=== PATIENT | male | born 1970 | race Caucasian/White ===

== ENCOUNTER 2018-05-08 01:38 | Inpatient (IN) | payer OTHER ==
[~2018-05-08] VITALS: Ht 190.5 cm; Wt 138.0 kg
[~2018-05-08 01:38] MED LIST: AMOX500 PO; RXOXYACE PO
[2018-05-08 02:29] LABS: BASOPHILS ABSOLUTE AUTO 0.02 K/mm3 (0.00-0.23); BASOPHILS PERCENT AUTO 0 % (0-2); EOSINOPHILS ABSOLUTE AUTO 0.07 K/mm3 (0.00-0.68); EOSINOPHILS PERCENT AUTO 1 % (0-6); Hematocrit 46.9 % (37.0-53.0); Hemoglobin 15.3 g/dL (13.5-17.5); IMMATURE GRAN ABSOLUTE AUTO 0.03 K/mm3 (0.00-0.10); IMMATURE GRAN PERCENT AUTO 0 % (0-1); LYMPHOCYTES ABSOLUTE AUTO 1.01 K/mm3 (0.84-5.20); LYMPHOCYTES PERCENT AUTO 11 % (21-46); MONOCYTES ABSOLUTE AUTO 0.67 K/mm3 (0.16-1.47); MONOCYTES PERCENT AUTO 7 % (4-13); Mean Corpuscular HGB 29.7 pg (26.0-34.0); Mean Corpuscular HGB Conc 32.6 g/dL (31.5-36.5); Mean Corpuscular Volume 91 fL (80-100); Mean Platelet Volume 9.9 fL (9.1-12.4); NEUTROPHILS ABSOLUTE AUTO 7.85 K/mm3 (1.96-9.15); NEUTROPHILS PERCENT AUTO 81 % (41-73); Platelet Count 187 K/mm3 (150-400); RDW Coefficient Variation 13.2 % (11.7-14.2); RDW Standard Deviation 44.7 fL (35.1-46.3); Red Blood Cell Count 5.16 M/mm3 (4.30-5.90); White Blood Cell Count 9.65 K/mm3 (4.00-11.30)
[2018-05-08 02:48] LABS: Alanine Aminotransfer (ALT/SGP 30 U/L (12-78); Albumin, Blood 3.9 g/dL (3.4-5.0); Albumin/Globulin Ratio 1.2 (0.8-1.8); Alk Phos 33 U/L (50-136); Anion Gap 7 mmol/L (6-16); Aspartate Aminotrans (AST/SGOT 17 U/L (12-37); Bilirubin, Total 0.5 mg/dL (0.1-1.0); Blood Urea Nitrogen 20 mg/dL (8-24); Bun/Creatinine Ratio 21.7 (12.0-20.0); CO2, Blood 30 mmol/L (21-32); Calcium, Blood 8.3 mg/dL (8.5-10.1); Chloride, Blood 105 mmol/L (98-108); Creatinine, Blood 0.92 mg/dL (0.60-1.20); Globulin, Blood 3.3 g/dL (2.2-4.0); Glomerular Filtration Rate >60 (60-); Glucose, Blood 115 mg/dL (70-99); Potassium, Blood 3.6 mmol/L (3.5-5.5); Sodium, Blood 142 mmol/L (136-145); Total Protein, Blood 7.2 g/dL (6.4-8.2)
[2018-05-09 05:27] LABS: BASOPHILS ABSOLUTE AUTO 0.03 K/mm3 (0.00-0.23); BASOPHILS PERCENT AUTO 0 % (0-2); EOSINOPHILS ABSOLUTE AUTO 0.08 K/mm3 (0.00-0.68); EOSINOPHILS PERCENT AUTO 1 % (0-6); Hematocrit 39.1 % (37.0-53.0); Hemoglobin 12.5 g/dL (13.5-17.5); IMMATURE GRAN ABSOLUTE AUTO 0.04 K/mm3 (0.00-0.10); IMMATURE GRAN PERCENT AUTO 1 % (0-1); LYMPHOCYTES ABSOLUTE AUTO 0.82 K/mm3 (0.84-5.20); LYMPHOCYTES PERCENT AUTO 11 % (21-46); MONOCYTES ABSOLUTE AUTO 0.49 K/mm3 (0.16-1.47); MONOCYTES PERCENT AUTO 6 % (4-13); Mean Corpuscular HGB 29.7 pg (26.0-34.0); Mean Corpuscular Volume 93 fL (80-100); Mean Platelet Volume 10.3 fL (9.1-12.4); NEUTROPHILS ABSOLUTE AUTO 6.37 K/mm3 (1.96-9.15); NEUTROPHILS PERCENT AUTO 81 % (41-73); Platelet Count 143 K/mm3 (150-400); RDW Coefficient Variation 13.9 % (11.7-14.2); RDW Standard Deviation 47.3 fL (35.1-46.3); Red Blood Cell Count 4.21 M/mm3 (4.30-5.90); White Blood Cell Count 7.83 K/mm3 (4.00-11.30)
[2018-05-09 05:45] LABS: Alanine Aminotransfer (ALT/SGP 30 U/L (12-78); Alk Phos 30 U/L (50-136); Anion Gap 6 mmol/L (6-16); Aspartate Aminotrans (AST/SGOT 18 U/L (12-37); Bilirubin, Total 1.4 mg/dL (0.1-1.0); Blood Urea Nitrogen 13 mg/dL (8-24); Bun/Creatinine Ratio 15.1 (12.0-20.0); CO2, Blood 24 mmol/L (21-32); Calcium, Blood 7.7 mg/dL (8.5-10.1); Chloride, Blood 109 mmol/L (98-108); Creatinine, Blood 0.86 mg/dL (0.60-1.20); Globulin, Blood 2.9 g/dL (2.2-4.0); Glomerular Filtration Rate >60 (60-); Glucose, Blood 104 mg/dL (70-99); Potassium, Blood 3.5 mmol/L (3.5-5.5); Sodium, Blood 139 mmol/L (136-145); Total Protein, Blood 5.9 g/dL (6.4-8.2)
[2018-05-11] MEDS ORDERED: ACET325 PO (13:46)
[2018-05-11] MEDS ORDERED: AMOCLA500 PO (13:54)
== END 2018-05-11 14:16 | disposition home or self-care (01) | DRG 392 ==
LOC: ER 01:38 → MEDS 01:39 → ER 05:01 → MEDS 05:35
PROVIDERS: Emergency Medicine; Internal Medicine
DX: K57.20 Diverticulitis of large intestine with perforation and abscess without bleeding (principal); Z88.2 Allergy status to sulfonamides
CPT/HCPCS: 36415; 74177; 80053; 83690; 85025; 96365; 96375; 96376; 99285-25; G0378; J0295; J0744; J1650; J1885; J2405; J3010; J3480; J7030; J7050; Q9967

== ENCOUNTER 2020-07-27 03:02 | Inpatient (IN) | payer OTHER ==
[~2020-07-27] VITALS: Ht 190.5 cm; Wt 150.4 kg
[~2020-07-27 03:02] MED LIST changes: +ACET325 PO; +AMOCLA500 PO
[2020-07-27 03:54] LABS: BASOPHILS ABSOLUTE AUTO 0.06 K/mm3 (0.00-0.23); BASOPHILS PERCENT AUTO 1 % (0-2); EOSINOPHILS ABSOLUTE AUTO 0.19 K/mm3 (0.00-0.68); EOSINOPHILS PERCENT AUTO 2 % (0-6); Hematocrit 47.2 % (37.0-53.0); Hemoglobin 15.6 g/dL (13.5-17.5); IMMATURE GRAN ABSOLUTE AUTO 0.03 K/mm3 (0.00-0.10); IMMATURE GRAN PERCENT AUTO 0 % (0-1); LYMPHOCYTES ABSOLUTE AUTO 2.91 K/mm3 (0.84-5.20); LYMPHOCYTES PERCENT AUTO 32 % (21-46); MONOCYTES ABSOLUTE AUTO 0.77 K/mm3 (0.16-1.47); MONOCYTES PERCENT AUTO 9 % (4-13); Mean Corpuscular HGB 29.7 pg (26.0-34.0); Mean Corpuscular HGB Conc 33.1 g/dL (31.5-36.5); Mean Corpuscular Volume 90 fL (80-100); NEUTROPHILS ABSOLUTE AUTO 5.13 K/mm3 (1.96-9.15); NEUTROPHILS PERCENT AUTO 56 % (41-73); RDW Coefficient Variation 12.5 % (11.7-14.2); RDW Standard Deviation 41.4 fL (35.1-46.3); Red Blood Cell Count 5.26 M/mm3 (4.30-5.90); White Blood Cell Count 9.09 K/mm3 (4.00-11.30)
[2020-07-27 03:55] LABS: Troponin I <0.015 ng/mL (0.000-0.040)
[2020-07-27 03:56] LABS: Alanine Aminotransfer (ALT/SGP 41 U/L (12-78); Albumin, Blood 3.7 g/dL (3.4-5.0); Albumin/Globulin Ratio 1.2 (0.8-1.8); Alk Phos 33 U/L (50-136); Anion Gap 7 mmol/L (6-16); Aspartate Aminotrans (AST/SGOT 22 U/L (12-37); Bilirubin, Total 0.3 mg/dL (0.1-1.0); Blood Urea Nitrogen 18 mg/dL (8-24); Bun/Creatinine Ratio 20.2 (12.0-20.0); CO2, Blood 27 mmol/L (21-32); Calcium, Blood 8.4 mg/dL (8.5-10.1); Chloride, Blood 108 mmol/L (98-108); Creatinine, Blood 0.89 mg/dL (0.60-1.20); Globulin, Blood 3.2 g/dL (2.2-4.0); Glomerular Filtration Rate >60 (60-); Glucose, Blood 153 mg/dL (70-99); Potassium, Blood 3.2 mmol/L (3.5-5.5); Sodium, Blood 142 mmol/L (136-145); Total Protein, Blood 6.9 g/dL (6.4-8.2)
[2020-07-27 04:02] LABS: Mean Platelet Volume 10.2 fL (9.1-12.4); Platelet Count 173 K/mm3 (150-400)
[2020-07-27 06:17] LABS: Influenza A, PCR Negative (NEGATIVE); Influenza B, PCR Negative (NEGATIVE); Resp Syncytial Virus, PCR Negative (NEGATIVE); SARS-Cov-2 (COVID-19) PCR, MMC Negative (NEGATIVE)
[2020-07-27] MEDS ORDERED: ACET325 PO (07:27)
[2020-07-27] MEDS ORDERED: DIPH25 PO (07:28)
[2020-07-27 10:58] LABS: Source, Urine Clean Catch
[2020-07-27 11:02] LABS: Bilirubin, Urine Neg (Neg); Blood, Urine Neg (Neg); Glucose Qualitative, Urine 1+ (Neg); Ketones, Urine 1+ (Neg); Leukocyte Esterase, Urine Neg (Neg); Nitrite, Urine Neg (Neg); Protein, Urine Neg (Neg); Specific Gravity, Urine 1.015 (1.003-1.022); Urobilinogen, Urine NORM (Normal)
[2020-07-27 11:12] LABS: Appearance, Urine Clear (Clear); Color, Urine Pale Yellow (P-Yellow)
--- NOTE | 2020-07-27 17:15 | NUR ---
SHIFT SUMMARY PATIENT TO THE FLOOR EARLY THIS MORNING. PATIENT ALERT AND ORIENTED UPON ARRIVAL. PATIENT TRANSFERED FROM [facility] TO THE BED INDEPENDENTLY. PATIENT MADE COMFORTABLE AND ORIENTED TO THE ROOM. PATIENT SLEPT MUCH OF THE MORNING. PATIENT UP INDEPENDENTLY TO THE BATHROOM. PATIENT DENIES PAIN OR DISCOMFORT THROUGHOUT THIS SHIFT. PATIENT REPORTS DIFFICULTY HEARING IN THE LEFT EAR, DR NOTIFIED. PATIENT'S SPOUSE IN THE ROOM THIS AFTERNOON. PATIENT NAPPED OFF AND ON THROUGHOUT THE AFTERNOON. PATIENT CURRENTLY LAYING IN BED SLEEPING.
[2020-07-28 04:27] LABS: BASOPHILS ABSOLUTE AUTO 0.02 K/mm3 (0.00-0.23); BASOPHILS PERCENT AUTO 0 % (0-2); EOSINOPHILS ABSOLUTE AUTO 0.02 K/mm3 (0.00-0.68); EOSINOPHILS PERCENT AUTO 0 % (0-6); Hematocrit 43.1 % (37.0-53.0); Hemoglobin 14.4 g/dL (13.5-17.5); IMMATURE GRAN ABSOLUTE AUTO 0.03 K/mm3 (0.00-0.10); IMMATURE GRAN PERCENT AUTO 0 % (0-1); LYMPHOCYTES ABSOLUTE AUTO 1.62 K/mm3 (0.84-5.20); LYMPHOCYTES PERCENT AUTO 14 % (21-46); MONOCYTES ABSOLUTE AUTO 0.96 K/mm3 (0.16-1.47); MONOCYTES PERCENT AUTO 8 % (4-13); Mean Corpuscular HGB 30.7 pg (26.0-34.0); Mean Corpuscular HGB Conc 33.4 g/dL (31.5-36.5); Mean Corpuscular Volume 92 fL (80-100); Mean Platelet Volume 9.8 fL (9.1-12.4); NEUTROPHILS ABSOLUTE AUTO 9.08 K/mm3 (1.96-9.15); NEUTROPHILS PERCENT AUTO 77 % (41-73); Platelet Count 174 K/mm3 (150-400); RDW Coefficient Variation 12.9 % (11.7-14.2); RDW Standard Deviation 42.9 fL (35.1-46.3); Red Blood Cell Count 4.69 M/mm3 (4.30-5.90); White Blood Cell Count 11.73 K/mm3 (4.00-11.30)
[2020-07-28 04:48] LABS: Anion Gap 4 mmol/L (6-16); Blood Urea Nitrogen 9 mg/dL (8-24); Bun/Creatinine Ratio 12.3 (12.0-20.0); CO2, Blood 28 mmol/L (21-32); Calcium, Blood 8.6 mg/dL (8.5-10.1); Chloride, Blood 110 mmol/L (98-108); Creatinine, Blood 0.73 mg/dL (0.60-1.20); Glomerular Filtration Rate >60 (60-); Glucose, Blood 110 mg/dL (70-99); Potassium, Blood 3.5 mmol/L (3.5-5.5); Sodium, Blood 142 mmol/L (136-145)
--- NOTE | 2020-07-28 07:42 | NUR ---
SHIFT SUMMARY PATIENT ALERT AND ORIENTED. HAD NO COMPLAINTS OF PAIN OR SHORTNESS OF BREATH OVERNIGHT. WAS ABLE TO SLEEP WELL. IV PATENT AND INFUSING. BED IN LOWEST POSITION WITH WHEELS LOCKED AND ALARM ON. CALL LIGHT WITHIN REACH. REPORT GIVEN TO ONCOMING RN.
[2020-07-28] MEDS ORDERED: CLON.5 PO (10:10)
[2020-07-28] MEDS ORDERED: PRED20 PO (10:11)
--- NOTE | 2020-07-28 12:15 | NUR ---
PT DISCHARGED AT APPROX 1210 VIA WHEELCHAIR BY TRAFFIC CONTROLLER CABLE. PT TAKEN TO EMERGENCY EXIT WHERE FAMILY IS WAITING FOR PT. IV WAS REMOVED AND SITE LOOKED WNL. DISCHARGE INSTRUCTIONS, FOLLOW UP APPOINTMENT, AND MEDICATIONS REVIEWED WITH PT. HARD SCRIPT PROVIDED TO PT. ROOM CHECKED FOR ANY BELONGINGS BEFORE DISCHARGING PT. PT STATED HE HAD EVERYTHING.
== END 2020-07-28 12:12 | disposition home or self-care (01) | DRG 149 ==
LOC: ER 03:02 → MEDS 05:36 → ENPENDDIS 07-28 09:47 → MEDS 07-28 12:12
PROVIDERS: Emergency Medicine; ADMIT Internal Medicine
DX: H81.02 Meniere's disease, left ear (principal); E87.2 Acidosis; E87.6 Hypokalemia; Z20.828 Contact with and (suspected) exposure to other viral communicable diseases
CPT/HCPCS: 0241U; 36415; 74176; 80048; 80053; 81003; 83605; 83690; 84484; 85025; 93005; 93010; 96361; 96365; 96375; 99285-25; A9270; J0744; J1650; J2405; J2543; J2550; J7030; J7120; J7512

== ENCOUNTER 2020-08-04 00:32 | Day surgery (SDC) | payer OTHER ==
[~2020-08-04 00:32] MED LIST changes: +CLON.5 PO; +DIPH25 PO; +PRED20 PO
== END 2020-08-04 23:42 | disposition home or self-care (01) ==
LOC: WOUND 00:32
DX: H90.42 Sensorineural hearing loss, unilateral, left ear, with unrestricted hearing on the contralateral side (principal); Z88.2 Allergy status to sulfonamides
CPT/HCPCS: G0463

== ENCOUNTER 2020-08-11 00:24 | Day surgery (SDC) | payer OTHER | END 2020-08-11 22:58 | disposition home or self-care (01) | LOC: HBO 00:24 | DX: H90.42 Sensorineural hearing loss, unilateral, left ear, with unrestricted hearing on the contralateral side (principal); Z79.52 Long term (current) use of systemic steroids; Z79.899 Other long term (current) drug therapy; Z20.828 Contact with and (suspected) exposure to other viral communicable diseases; Z88.2 Allergy status to sulfonamides | CPT/HCPCS: G0277 ==

== ENCOUNTER 2020-08-12 00:24 | Day surgery (SDC) | payer OTHER | END 2020-08-12 22:55 | disposition home or self-care (01) | LOC: HBO 00:24 | DX: H90.42 Sensorineural hearing loss, unilateral, left ear, with unrestricted hearing on the contralateral side (principal); Z79.52 Long term (current) use of systemic steroids; Z79.899 Other long term (current) drug therapy; Z20.828 Contact with and (suspected) exposure to other viral communicable diseases; Z88.2 Allergy status to sulfonamides | CPT/HCPCS: G0277 ==

== ENCOUNTER 2020-08-13 01:14 | Day surgery (SDC) | payer OTHER | END 2020-08-13 23:01 | disposition home or self-care (01) | LOC: HBO 01:14 | DX: H90.42 Sensorineural hearing loss, unilateral, left ear, with unrestricted hearing on the contralateral side (principal); Z79.52 Long term (current) use of systemic steroids; Z79.899 Other long term (current) drug therapy; Z20.828 Contact with and (suspected) exposure to other viral communicable diseases; Z88.2 Allergy status to sulfonamides | CPT/HCPCS: G0277 ==

== ENCOUNTER 2020-08-14 00:46 | Day surgery (SDC) | payer OTHER | END 2020-08-14 23:20 | disposition home or self-care (01) | LOC: HBO 00:46 | DX: H90.42 Sensorineural hearing loss, unilateral, left ear, with unrestricted hearing on the contralateral side (principal); Z79.52 Long term (current) use of systemic steroids; Z79.899 Other long term (current) drug therapy; Z20.828 Contact with and (suspected) exposure to other viral communicable diseases; Z88.2 Allergy status to sulfonamides | CPT/HCPCS: G0277 ==

== ENCOUNTER 2020-08-19 00:28 | Day surgery (SDC) | payer OTHER | END 2020-08-19 22:47 | disposition home or self-care (01) | LOC: HBO 00:28 | DX: H91.22 Sudden idiopathic hearing loss, left ear (principal); H91.90 Unspecified hearing loss, unspecified ear | CPT/HCPCS: G0277 ==

== ENCOUNTER 2020-08-20 08:00 | Day surgery (SDC) | payer OTHER | END 2020-08-25 23:10 | disposition home or self-care (01) | LOC: HBO 08:00 | DX: H90.42 Sensorineural hearing loss, unilateral, left ear, with unrestricted hearing on the contralateral side (principal); Z79.899 Other long term (current) drug therapy; Z20.822 Contact with and (suspected) exposure to COVID-19; Z88.2 Allergy status to sulfonamides | CPT/HCPCS: G0277 ==

== ENCOUNTER 2020-08-21 00:11 | Day surgery (SDC) | payer OTHER | END 2020-08-21 23:33 | disposition home or self-care (01) | LOC: HBO 00:11 | DX: H91.22 Sudden idiopathic hearing loss, left ear (principal) | CPT/HCPCS: G0277 ==

== ENCOUNTER 2020-08-22 01:13 | Day surgery (SDC) | payer OTHER | END 2020-08-22 23:22 | disposition home or self-care (01) | LOC: HBO 01:13 | DX: H90.42 Sensorineural hearing loss, unilateral, left ear, with unrestricted hearing on the contralateral side (principal) | CPT/HCPCS: G0277 ==

== ENCOUNTER 2020-08-25 00:36 | Day surgery (SDC) | payer OTHER | END 2020-08-25 23:10 | disposition home or self-care (01) | LOC: WOUND 00:36 | DX: H90.42 Sensorineural hearing loss, unilateral, left ear, with unrestricted hearing on the contralateral side (principal); Z79.899 Other long term (current) drug therapy; Z20.822 Contact with and (suspected) exposure to COVID-19; Z88.2 Allergy status to sulfonamides | CPT/HCPCS: G0463 ==

== ENCOUNTER 2020-08-25 00:37 | Day surgery (SDC) | payer OTHER | END 2020-08-25 23:10 | disposition home or self-care (01) | LOC: HBO 00:37 | DX: H90.42 Sensorineural hearing loss, unilateral, left ear, with unrestricted hearing on the contralateral side (principal); Z79.899 Other long term (current) drug therapy; Z20.822 Contact with and (suspected) exposure to COVID-19; Z82.2 Family history of deafness and hearing loss | CPT/HCPCS: G0277 ==

== ENCOUNTER 2020-08-26 00:39 | Day surgery (SDC) | payer OTHER | END 2020-08-26 22:47 | LOC: HBO 00:39 | DX: H90.42 Sensorineural hearing loss, unilateral, left ear, with unrestricted hearing on the contralateral side (principal); Z79.899 Other long term (current) drug therapy; Z20.822 Contact with and (suspected) exposure to COVID-19; Z88.2 Allergy status to sulfonamides; Z79.1 Long term (current) use of non-steroidal anti-inflammatories (NSAID) | CPT/HCPCS: G0277 ==

== ENCOUNTER 2020-08-27 00:24 | Day surgery (SDC) | payer OTHER | END 2020-08-27 22:46 | disposition home or self-care (01) | LOC: HBO 00:24 | DX: H90.42 Sensorineural hearing loss, unilateral, left ear, with unrestricted hearing on the contralateral side (principal) | CPT/HCPCS: G0277 ==

== ENCOUNTER 2020-08-28 00:16 | Day surgery (SDC) | payer OTHER | END 2020-08-28 23:53 | disposition home or self-care (01) | LOC: HBO 00:16 | DX: H90.42 Sensorineural hearing loss, unilateral, left ear, with unrestricted hearing on the contralateral side (principal); Z79.899 Other long term (current) drug therapy; Z20.822 Contact with and (suspected) exposure to COVID-19; Z88.2 Allergy status to sulfonamides | CPT/HCPCS: G0277 ==

== ENCOUNTER 2020-08-29 02:05 | Day surgery (SDC) | payer OTHER | END 2020-08-29 23:48 | disposition home or self-care (01) | LOC: HBO 02:05 | DX: H90.42 Sensorineural hearing loss, unilateral, left ear, with unrestricted hearing on the contralateral side (principal); Z79.899 Other long term (current) drug therapy; Z20.822 Contact with and (suspected) exposure to COVID-19; Z88.2 Allergy status to sulfonamides | CPT/HCPCS: G0277 ==

== ENCOUNTER 2020-09-01 00:27 | Day surgery (SDC) | payer OTHER | END 2020-09-01 22:39 | LOC: HBO 00:27 | DX: H90.42 Sensorineural hearing loss, unilateral, left ear, with unrestricted hearing on the contralateral side (principal); Z79.899 Other long term (current) drug therapy; Z88.2 Allergy status to sulfonamides | CPT/HCPCS: G0277 ==

== ENCOUNTER 2020-09-02 00:23 | Day surgery (SDC) | payer OTHER | END 2020-09-02 23:14 | disposition home or self-care (01) | LOC: HBO 00:23 | DX: H91.22 Sudden idiopathic hearing loss, left ear (principal); Z79.899 Other long term (current) drug therapy; Z20.822 Contact with and (suspected) exposure to COVID-19; Z88.2 Allergy status to sulfonamides | CPT/HCPCS: G0277 ==

== ENCOUNTER 2020-09-03 00:42 | Day surgery (SDC) | payer OTHER | END 2020-09-03 23:08 | disposition home or self-care (01) | LOC: HBO 00:42 | DX: H90.42 Sensorineural hearing loss, unilateral, left ear, with unrestricted hearing on the contralateral side (principal); Z79.899 Other long term (current) drug therapy; Z20.822 Contact with and (suspected) exposure to COVID-19; Z88.2 Allergy status to sulfonamides | CPT/HCPCS: G0277 ==

== ENCOUNTER 2020-09-04 01:32 | Day surgery (SDC) | payer OTHER | END 2020-09-04 22:37 | disposition home or self-care (01) | LOC: HBO 01:32 | DX: H90.42 Sensorineural hearing loss, unilateral, left ear, with unrestricted hearing on the contralateral side (principal); Z79.899 Other long term (current) drug therapy; Z88.2 Allergy status to sulfonamides; Z20.822 Contact with and (suspected) exposure to COVID-19 | CPT/HCPCS: G0277 ==

== ENCOUNTER 2020-09-05 00:30 | Day surgery (SDC) | payer OTHER | END 2020-09-05 22:44 | disposition home or self-care (01) | LOC: HBO 00:30 | DX: H90.42 Sensorineural hearing loss, unilateral, left ear, with unrestricted hearing on the contralateral side (principal) | CPT/HCPCS: G0277 ==

== ENCOUNTER 2020-09-08 00:30 | Day surgery (SDC) | payer OTHER | END 2020-09-08 22:37 | disposition home or self-care (01) | LOC: HBO 00:30 | DX: H90.42 Sensorineural hearing loss, unilateral, left ear, with unrestricted hearing on the contralateral side (principal); Z79.899 Other long term (current) drug therapy; Z88.2 Allergy status to sulfonamides | CPT/HCPCS: G0277 ==

== ENCOUNTER 2020-09-09 00:19 | Day surgery (SDC) | payer OTHER | END 2020-09-09 22:50 | disposition home or self-care (01) | LOC: HBO 00:19 | DX: H91.22 Sudden idiopathic hearing loss, left ear (principal) | CPT/HCPCS: G0277 ==

== ENCOUNTER 2020-09-09 00:22 | Day surgery (SDC) | payer OTHER | END 2020-09-09 22:50 | disposition home or self-care (01) | LOC: WOUND 00:22 | DX: H91.22 Sudden idiopathic hearing loss, left ear (principal) | CPT/HCPCS: G0463 ==

== ENCOUNTER 2021-03-31 13:21 | Inpatient (IN) | payer OTHER ==
[~2021-03-31] VITALS: Ht 190.5 cm; Wt 150.4 kg
[2021-03-31 15:20] LABS: BASOPHILS ABSOLUTE AUTO 0.01 K/mm3 (0.00-0.23); BASOPHILS PERCENT AUTO 0 % (0-2); EOSINOPHILS PERCENT AUTO 0 % (0-6); Hematocrit 49.3 % (37.0-53.0); IMMATURE GRAN ABSOLUTE AUTO 0.03 K/mm3 (0.00-0.10); IMMATURE GRAN PERCENT AUTO 0 % (0-1); LYMPHOCYTES ABSOLUTE AUTO 0.39 K/mm3 (0.84-5.20); LYMPHOCYTES PERCENT AUTO 5 % (21-46); MONOCYTES ABSOLUTE AUTO 0.23 K/mm3 (0.16-1.47); MONOCYTES PERCENT AUTO 3 % (4-13); Mean Corpuscular HGB 30.1 pg (26.0-34.0); Mean Corpuscular HGB Conc 34.5 g/dL (31.5-36.5); Mean Corpuscular Volume 87 fL (80-100); Mean Platelet Volume 10.1 fL (9.1-12.4); NEUTROPHILS ABSOLUTE AUTO 7.21 K/mm3 (1.96-9.15); NEUTROPHILS PERCENT AUTO 92 % (41-73); Platelet Count 150 K/mm3 (150-400); RDW Coefficient Variation 13.6 % (11.7-14.2); RDW Standard Deviation 43.8 fL (35.1-46.3); Red Blood Cell Count 5.65 M/mm3 (4.30-5.90); White Blood Cell Count 7.87 K/mm3 (4.00-11.30)
[2021-03-31 15:45] LABS: Troponin I 0.054 ng/mL (0.000-0.040)
[2021-03-31 15:49] LABS: Alanine Aminotransfer (ALT/SGP 128 U/L (12-78); Albumin, Blood 3.5 g/dL (3.4-5.0); Albumin/Globulin Ratio 0.9 (0.8-1.8); Alk Phos 41 U/L (50-136); Anion Gap 5 mmol/L (6-16); Aspartate Aminotrans (AST/SGOT 114 U/L (12-37); Bilirubin, Total 0.4 mg/dL (0.1-1.0); Blood Urea Nitrogen 13 mg/dL (8-24); Bun/Creatinine Ratio 14.3 (12.0-20.0); CO2, Blood 27 mmol/L (21-32); Chloride, Blood 100 mmol/L (98-108); Creatinine, Blood 0.91 mg/dL (0.60-1.20); Glomerular Filtration Rate >60 (60-); Glucose, Blood 142 mg/dL (70-99); Potassium, Blood 4.1 mmol/L (3.5-5.5); Sodium, Blood 132 mmol/L (136-145); Total Protein, Blood 7.5 g/dL (6.4-8.2)
[2021-03-31] MEDS ORDERED: CEFDINIR300 M4 PO (16:41)
[2021-03-31] MEDS ORDERED: Zithromax Tri-500 MG PO ×2 (16:42→21:18)
[2021-03-31] MEDS ORDERED: Prednisone10 MG PO (21:16)
[2021-03-31] MEDS ORDERED: CEFD300 PO (21:17)
--- NOTE | 2021-03-31 22:40 | NUR ---
IV R AC 20 SL WNL, PATENT
--- NOTE | 2021-03-31 22:53 | NUR ---
2231 PT ARRIVED TO ROOM FROM ER IN STABLE CONDITION. REPORTS SOB THAT INCREASES WITH EXERTION, ON 4L O2 NC AT 96%. WILL GET TELE RYTHYM AFTER IT IS PLACED ON. NO OTHER APPARENT SIGNS OF DISTRESS. CALL LIGHT IS IN REACH.
--- NOTE | 2021-03-31 23:31 | NUR ---
TELE NSR AT 78 PER SUPERVISOR IRRIGATION
--- NOTE | 2021-04-01 03:36 | NUR ---
0000 PT LYING IN BED, EYES CLOSED, APPEARS TO BE RESTING. BREATHING IS EVEN, UNLABORED. NO APPARENT SIGNS OF DISTRESS. CALL LIGHT IS IN REACH.
--- NOTE | 2021-04-01 03:37 | NUR ---
0135 PT LYING IN BED, REQUESTED AND RECIEVED TYLENOL. WILL EVAL FOR EFFECT. NO OTHER APPARENT SIGNS OF DISTRESS. CALL LIGHT IS IN REACH.
--- NOTE | 2021-04-01 03:37 | NUR ---
PT LYING IN BED, EYES CLOSED, APPEARS TO BE RESTING. BREATHING IS EVEN, UNLABORED. NO APPARENT SIGNS OF DISTRESS. CALL LIGHT IS IN REACH.
--- NOTE | 2021-04-01 03:38 | NUR ---
PT IS AAO X 4, ON 5L O2 NC AT 94%. REPORTS SOB THAT INCREASES WITH EXERTION. GOT TYLENOL AND TORADOL IN ER FOR TEMP 99.8/100.2 AND ABD PAIN. GOT TYLENOL ABOUT 0135 FOR ABD PAIN AND PT STATED HE FELT WARM. TELE NSR.
--- NOTE | 2021-04-01 07:25 | NUR ---
PT LYING IN BED, EYES CLOSED, APPEARS TO BE RESTING. BREATHING IS EVEN, UNLABORED. NO APPARENT SIGNS OF DISTRESS. CALL LIGHT IS IN REACH. NO OTHER CHANGES THIS SHIFT.
--- NOTE | 2021-04-01 11:03 | NUR ---
Spiritual Care visit provided. The pt was unsure of how he was doing relative to other covid pts. I reassured him and provided encouragement that he was in the right place to get the care he needed. He is anxious about getting back to work as this is an extremely busy and important time of the year for him. Pt engaged well and verbalized appreciation.
--- NOTE | 2021-04-01 17:23 | NUR ---
PT HAS BEEN MAINTAINING LEVELS >90 BETWEEN 5-7L. PT IS ALERT AND ORIENTED AND ABLE TO EXPRESS ANY NEEDS. PT HAS BEEN PRONING OR UP RIGHT IN CHAIR NEEDED. HE IS FRIENDLY AND COOPERATIVE WITH STAFF. FIRST DOSE OF REMDEZ GIVEN. CALL LIGHT WITHIN REACH. WCTM
--- NOTE | 2021-04-02 00:20 | NUR ---
iv present rt fa not documented. Site clean dry intact flushed with ease
--- NOTE | 2021-04-02 05:14 | NUR ---
50 year old Male with covid 19 pneumonia required tiration of oxygen to max on nonrebreather this AM, had needed to change from high flow to oximizer last PM & was 7 l oximizer through [facility] with bioxx. Proned most of night & this AM had hacking cough sats 84 gave cough med & increased oxygen to 15 l nonrebreather & changed fonger probe for bioxx. desated to 71 despite max oxygen . RT notified & PT started on airvo heated high flow oxygen to keep sats greater than 90%. ORder obtained for DR Celso Juarez for heated high flow oxygen & sats now above 90% currently 92% on 50 l 90% per RT report.
--- NOTE | 2021-04-02 06:25 | NUR ---
PT sat 92% on airvo alert asking for a fan.
--- NOTE | 2021-04-02 09:45 | NUR ---
PT WILL BE TRANSFER TO ICU; MAX ON BIPAP SATS 90% AT REST. DESATS ON EXERTION
--- NOTE | 2021-04-02 10:25 | NUR ---
UPDATE ON PT'S TRANSFER TO ICU CALLED TO , [facility].
[2021-04-02 11:29] LABS: BASOPHILS ABSOLUTE AUTO 0.01 K/mm3 (0.00-0.23); BASOPHILS PERCENT AUTO 0 % (0-2); EOSINOPHILS PERCENT AUTO 0 % (0-6); Hematocrit 46.4 % (37.0-53.0); Hemoglobin 15.9 g/dL (13.5-17.5); IMMATURE GRAN ABSOLUTE AUTO 0.03 K/mm3 (0.00-0.10); IMMATURE GRAN PERCENT AUTO 0 % (0-1); LYMPHOCYTES ABSOLUTE AUTO 0.46 K/mm3 (0.84-5.20); LYMPHOCYTES PERCENT AUTO 5 % (21-46); MONOCYTES ABSOLUTE AUTO 0.36 K/mm3 (0.16-1.47); MONOCYTES PERCENT AUTO 4 % (4-13); Mean Corpuscular HGB 30.1 pg (26.0-34.0); Mean Corpuscular HGB Conc 34.3 g/dL (31.5-36.5); Mean Corpuscular Volume 88 fL (80-100); Mean Platelet Volume 10.2 fL (9.1-12.4); NEUTROPHILS ABSOLUTE AUTO 8.14 K/mm3 (1.96-9.15); NEUTROPHILS PERCENT AUTO 91 % (41-73); Platelet Count 172 K/mm3 (150-400); RDW Coefficient Variation 13.7 % (11.7-14.2); RDW Standard Deviation 44.6 fL (35.1-46.3); Red Blood Cell Count 5.28 M/mm3 (4.30-5.90)
[2021-04-02 11:49] LABS: Anion Gap 5 mmol/L (6-16); Blood Urea Nitrogen 13 mg/dL (8-24); Bun/Creatinine Ratio 20.2 (12.0-20.0); CO2, Blood 29 mmol/L (21-32); Calcium, Blood 8.7 mg/dL (8.5-10.1); Chloride, Blood 103 mmol/L (98-108); Creatinine, Blood 0.64 mg/dL (0.60-1.20); Glomerular Filtration Rate >60 (60-); Glucose, Blood 109 mg/dL (70-99); Potassium, Blood 4.2 mmol/L (3.5-5.5); Sodium, Blood 137 mmol/L (136-145)
--- NOTE | 2021-04-02 12:00 | NUR ---
Assumed care of pt upon arrival to ICU 12 from medical floor at 1005. Pt transferred to ICU because he was on maximum settings with V60 BiPAP. Slid from med bed to ICU bed using slider sheet and 5 staff. Pt arrived to unit wearing V60 BiPAP /6 and 100% FiO2. SpO2 97% and RR 16-20. Lungs coarse t/o, diminished in bases. Dry, nonproductive cough noted. SR per monitor. BP stable. Pt is A&O x 4. Answers questions. Follows commands. Verbalizes needs. Pleasant and cooperative with care. Bed in lowest position. Call light in reach. Pt denies need at this time.
[2021-04-02 14:22] LABS: PCO2 Arterial 41.6 mmHg (35-45); PO2 Arterial 84.5 mmHg (80-100); pH Blood Arterial 7.46 (7.35-7.45)
[2021-04-02 14:57] LABS: Source, Urine Catheter
--- NOTE | 2021-04-02 15:00 | NUR ---
Pt attempted to void into urinal and was unsuccessful. Stated "I may need a catheter". Conte catheter inserted, pt tolerated well. Pt to CT for PE study. This RN gave an update. Pt took break from BiPAP for V60 HFT. Tolerated for about 10 minutes before he desaturated into 80s. This RN had also call spouse so the two of them could talk since he was on a break from the mask. Pt talked with and then was put back onto BiPAP.
[2021-04-02 15:04] LABS: Appearance, Urine Clear (Clear); Bilirubin, Urine Neg (Neg); Blood, Urine 1+ (Neg); Color, Urine Yellow (P-Yellow); Glucose Qualitative, Urine Neg (Neg); Ketones, Urine Neg (Neg); Leukocyte Esterase, Urine Neg (Neg); Nitrite, Urine Neg (Neg); Protein, Urine 2+ (Neg); Urobilinogen, Urine NORM (Normal)
[2021-04-02 15:19] LABS: Bacteria Mod /hpf; Red Blood Cells, Urine 0-2 /hpf (0-2); Squamous Epithelial Cells Rare /hpf (Few); White Blood Cells, Urine 0-2 /hpf (0-5)
--- NOTE | 2021-04-02 19:28 | NUR ---
SUMMARY At this time, V60 BiPAP settings /6 and 75% FiO2. SpO2 90% or greater. SR per monitor. Pt did not get out of bed this shift due to high oxygen requirement, but did stay mobile in bed, repositioning with only verbal cues from staff. Conte catheter placed because pt was unable to void. SR per monitor. BP stable. Pt briefly visited with his son, Sigifredo, this evening.
[2021-04-03 03:21] LABS: BASOPHILS ABSOLUTE AUTO 0.01 K/mm3 (0.00-0.23); BASOPHILS PERCENT AUTO 0 % (0-2); EOSINOPHILS PERCENT AUTO 0 % (0-6); Hematocrit 47.4 % (37.0-53.0); Mean Corpuscular HGB 29.8 pg (26.0-34.0); Mean Corpuscular HGB Conc 33.8 g/dL (31.5-36.5); Mean Corpuscular Volume 88 fL (80-100); Platelet Count 190 K/mm3 (150-400); RDW Coefficient Variation 13.4 % (11.7-14.2); RDW Standard Deviation 43.7 fL (35.1-46.3); Red Blood Cell Count 5.37 M/mm3 (4.30-5.90); White Blood Cell Count 6.99 K/mm3 (4.00-11.30)
[2021-04-03 03:22] LABS: IMMATURE GRAN ABSOLUTE AUTO 0.03 K/mm3 (0.00-0.10); IMMATURE GRAN PERCENT AUTO 0 % (0-1); LYMPHOCYTES ABSOLUTE AUTO 0.73 K/mm3 (0.84-5.20); LYMPHOCYTES PERCENT AUTO 10 % (21-46); MONOCYTES ABSOLUTE AUTO 0.49 K/mm3 (0.16-1.47); MONOCYTES PERCENT AUTO 7 % (4-13); NEUTROPHILS ABSOLUTE AUTO 5.73 K/mm3 (1.96-9.15); NEUTROPHILS PERCENT AUTO 82 % (41-73)
[2021-04-03 03:40] LABS: Anion Gap 4 mmol/L (6-16); Blood Urea Nitrogen 14 mg/dL (8-24); Bun/Creatinine Ratio 19.4 (12.0-20.0); CO2, Blood 30 mmol/L (21-32); Calcium, Blood 8.4 mg/dL (8.5-10.1); Chloride, Blood 105 mmol/L (98-108); Creatinine, Blood 0.72 mg/dL (0.60-1.20); Glomerular Filtration Rate >60 (60-); Glucose, Blood 117 mg/dL (70-99); Potassium, Blood 4.4 mmol/L (3.5-5.5); Sodium, Blood 139 mmol/L (136-145)
[2021-04-03 05:22] LABS: PCO2 Arterial 40.9 mmHg (35-45); PO2 Arterial 62.4 mmHg (80-100); pH Blood Arterial 7.48 (7.35-7.45)
--- NOTE | 2021-04-03 06:20 | NUR ---
END OF SHIFT SUMMARY: PATIENT HAS REMAINED A/O X4 AND HAS TOLERATED BIPAP OVERNIGHT / ON 75%. PATIENT REPORTS LITTLE TO NO APPETITE INITIALLY BUT ATE ENSURE X2 AND PUDDING X2. HE WAS PLACED ON AIRVO AT 100% WHILE EATING BUT DESATED INTO LOW 80S AND THEN TO MID 70S. HE HAS REMAINED ON BIPAP THE REST OF THE EVENING AND HAS DONE WELL PRONING AND TURNING ON OWN WITH A LITTLE ENCOURANGEMENT & GUIDANCE. PATIENT CALLED THAT HE WAS UNCOMFORTABLE AND GETTING MORE AND MORE ANXIOUS. EXPLAINED TO HIM WHAT PRECEDEX WAS AND THAT I COULD START IF NEEDED. HE AGREED AND IT WAS STARTED AT 0030.
--- NOTE | 2021-04-03 07:30 | NUR ---
UPON THE CHANGE OF SHIFT PT NOTED TO BE PALE, COOL, AND DIAPHORETIC, RR 47, SPO2 79%. BIPAP SETTINGS WERE CHANGED TO 20/10 WITH 100% O2, PT'S SPO2 SLOWLY TRENDS UP WITH SETTINGS CHANGE. HR 46 PRECIDEX DRIP WAS STOPPED, PT STS THAT PRECIDEX WAS NOT IMPROVING HIS COMFORT OR ANXIETY. PT WAS POSITIONED TO LT SIDE SPO2 CONTINUES TO IMPROVE. RT IS AT THE BEDSIDE DR SCHWAB IS MADE AWARE. WILL CONTINUE TO MONITOR
--- NOTE | 2021-04-03 09:24 | NUR ---
BIPAP 16/10 WITH 80% O2, SPO2 96% RR 21. PT APPEARS TO BE RESTING COMFORTABLY AT THIS TIME. VSS. WILL CONTINUE TO MONITOR
--- NOTE | 2021-04-03 12:43 | NUR ---
PT REMAINS IN PRONE POSITION WHICH HE IS TOLERATING WELL. PT ASSISTED WITH MINOR REPOSITIONING. VSS. PT DENIES FURTHER NEEDS AT THIS TIME
--- NOTE | 2021-04-03 18:25 | NUR ---
PT HAS BEEN SUPINE, SIDE LYING AND PRONE T/O THE DAY. PT DID HAVE A DECREASE IN SPO2 THIS AM WHICH HAS SINCE RESOLVED EALRY THIS AM WITH CHANGE IN BIPAP SETTINGS. PT IS A/O X3, ANWERS QUESTIONS APPOPRIATELY, PT CALM COOPERATIVE AND PLEASANT. SKIN IS COOL WITH SLIGHT DIAPHORESIS T/O THE DAY. PT OTHERWISE HAS HAD A GOOD DAY WITH GOOD SPO2 READINGS.
--- NOTE | 2021-04-04 02:00 | NUR ---
PT CALLED ME IN THE ROOM, SAID HE WAS THIRSTY, NEEDED TO BE REPOSITIONED. PT BEGAN COUGHING WITH MOVEMENT. CAUGHT HIS BREATH, SAT HIM UP WITH THE BED AND HE WAS ABLE TO DRINK AN ENSURE BUTTER PECAN, AND SOME WATER. HE "FELT GOOD" WITH IT, SATS TOOK SOME TIME TO DROP, THE MASK WAS REPLACED AND PT WAS REPOSITIONED, HIS SATS TOOK SOME TIME TO TO COME BACK UP. R/T IN THE ROOM, ADJUSTING THE BIPAP, TITRATING THE FIO2 WELL. UNABLE TO MAINTAIN SAT AT THE LOWER FIO2 SO PUT AT 100% FOR NOW.
[2021-04-04 03:17] LABS: BASOPHILS ABSOLUTE AUTO 0.01 K/mm3 (0.00-0.23); BASOPHILS PERCENT AUTO 0 % (0-2); EOSINOPHILS PERCENT AUTO 0 % (0-6); Hematocrit 46.1 % (37.0-53.0); Hemoglobin 15.6 g/dL (13.5-17.5); Mean Corpuscular HGB 29.8 pg (26.0-34.0); Mean Corpuscular HGB Conc 33.8 g/dL (31.5-36.5); Mean Corpuscular Volume 88 fL (80-100); Mean Platelet Volume 9.9 fL (9.1-12.4); Platelet Count 243 K/mm3 (150-400); RDW Coefficient Variation 13.3 % (11.7-14.2); RDW Standard Deviation 43.5 fL (35.1-46.3); Red Blood Cell Count 5.23 M/mm3 (4.30-5.90); White Blood Cell Count 6.55 K/mm3 (4.00-11.30)
[2021-04-04 03:20] LABS: IMMATURE GRAN ABSOLUTE AUTO 0.02 K/mm3 (0.00-0.10); IMMATURE GRAN PERCENT AUTO 0 % (0-1); LYMPHOCYTES ABSOLUTE AUTO 0.86 K/mm3 (0.84-5.20); LYMPHOCYTES PERCENT AUTO 13 % (21-46); MONOCYTES ABSOLUTE AUTO 0.33 K/mm3 (0.16-1.47); MONOCYTES PERCENT AUTO 5 % (4-13); NEUTROPHILS ABSOLUTE AUTO 5.33 K/mm3 (1.96-9.15); NEUTROPHILS PERCENT AUTO 81 % (41-73)
[2021-04-04 03:32] LABS: Anion Gap 8 mmol/L (6-16); Blood Urea Nitrogen 20 mg/dL (8-24); Bun/Creatinine Ratio 28.4 (12.0-20.0); CO2, Blood 27 mmol/L (21-32); Calcium, Blood 8.4 mg/dL (8.5-10.1); Chloride, Blood 105 mmol/L (98-108); Glomerular Filtration Rate >60 (60-); Glucose, Blood 183 mg/dL (70-99); Magnesium, Blood 2.3 mg/dL (1.6-2.4); Potassium, Blood 4.1 mmol/L (3.5-5.5); Sodium, Blood 140 mmol/L (136-145)
--- NOTE | 2021-04-04 10:25 | NUR ---
PT'S SON MUMTAZ TOOK PT'S WALLET HOME THIS AM
--- NOTE | 2021-04-04 11:17 | NUR ---
PT PLACED ON AIRVO 55L, 70%. SATS MAINTAINED 89-90% WHILE SITTING IN CHAIR BUT SATS DROP WITH MOVEMENT. PT ENCOURAGED TO CONCENTRATE ON BREATHING AND TAKE BREATHS THROUGH HIS NOSE.
--- NOTE | 2021-04-04 12:07 | NUR ---
PT HAD A SHORT BREAK FROM BIPAP WHERE HE WAS PLACED ON AIRVO, PT WAS ONLY ABLE TO TOLERATE AIRVO FOR APPROX 20 MINUTES BEFORE HE BEGAN TO DESATURATE, THERE WAS AN ATTEMPT TO REDIRECT PT TO BREATHE THROUGH NOSE HE WAS HOPING TO STAY ON AIRVO SO THAT HE COULD EAT BUT PT QUICKLY RETURNED TO MOUTH BREATHING AND DESATURATED. PT WAS PLACED BACK ON TO BIPAP WITH QUICK RESOLVE OF SPO2 BACK TO 92%. PT EXPRESSED DISCONTENT THAT HE WAS GOING TO BE ABLE TO EAT OR DRINK HE WAS BEING PLACED BACK ON BIPAP.
--- NOTE | 2021-04-04 13:54 | NUR ---
REPORT TO SALOME GARCIA WHO WILL ASSUME PT CARE. PT TRANSFERED FROM ICU 12 TO PCU 5 VIA RECLINER REMAINED ON BIPAP T/O TRANSFER. NO FLUIDS INFUSING ON TIME OF TRANSFER
--- NOTE | 2021-04-04 14:32 | NUR ---
Pt transferred from ICU 12 to PCu5 in recliner, while on bipap, settings 16/12 and 100% fio2. After in PCU, requesting food /drink. Switched from bipap to AirVo, and settings 50L and 100% fio2. Pt has tolerated drinking Ensure, water, and doing oral care himself while on the Air vo now for 17 min, and spo2 is maintaining at 92-94%. He states he is feeling fine. RR 16-22/minute and the pt appears non-anxious, and not dyspneic.
--- NOTE | 2021-04-04 16:44 | NUR ---
Pt still sitting up in recliner, states he feels fine. Titrated bipap setting from 100% fio2 to 75%, and spo2 is maintaining at 96-97%, RR 21-23/min.
--- NOTE | 2021-04-04 18:11 | NUR ---
Pt tolerated being off the bipap for approx 20 minutes, while eating a full liquid dinner. Put back on bipap for use of Bedside commode. Had a normal looking bowel movement, then requested to get into bed. Assisted to bed, IV remdisivir now infusing.
--- NOTE | 2021-04-04 21:00 | NUR ---
TOOK PATIENT OFF BIPAP AND PLACED ON AIRVO 50L FIO2 75% FOR HIM TO DRINK SOME WATER AND PERFORM ORAL CARE. SPO2 DOWN TO LOW 80'S. PATIENT BREATHED DEEPLY THROUGH HIS NOSE AND SPO2 CAME UP TO UPPER 80'S BUT QUICKLY DROPPED BACK DOWN. HAD TO INCREASE FIO2 TO 85% TO GET SPO2 UP. PATIENT WANTED TO GO BACK ON BIPAP. ASSISTED HIM IN THE PRONE POSITION FOR SLEEP. HE REQUESTED ATIVAN TO HELP WITH ANXIETY, WILL BRING IN ATIVAN. CALL LIGHT IN REACH. BED ALARM ON.
[2021-04-05 03:41] LABS: BASOPHILS ABSOLUTE AUTO 0.01 K/mm3 (0.00-0.23); BASOPHILS PERCENT AUTO 0 % (0-2); EOSINOPHILS PERCENT AUTO 0 % (0-6); Hematocrit 45.9 % (37.0-53.0); Hemoglobin 15.3 g/dL (13.5-17.5); Mean Corpuscular HGB 29.6 pg (26.0-34.0); Mean Corpuscular HGB Conc 33.3 g/dL (31.5-36.5); Mean Corpuscular Volume 89 fL (80-100); Mean Platelet Volume 9.8 fL (9.1-12.4); Platelet Count 272 K/mm3 (150-400); RDW Coefficient Variation 13.1 % (11.7-14.2); RDW Standard Deviation 42.8 fL (35.1-46.3); Red Blood Cell Count 5.17 M/mm3 (4.30-5.90); White Blood Cell Count 9.79 K/mm3 (4.00-11.30)
[2021-04-05 03:48] LABS: IMMATURE GRAN ABSOLUTE AUTO 0.04 K/mm3 (0.00-0.10); IMMATURE GRAN PERCENT AUTO 0 % (0-1); LYMPHOCYTES ABSOLUTE AUTO 1.03 K/mm3 (0.84-5.20); LYMPHOCYTES PERCENT AUTO 11 % (21-46); MONOCYTES ABSOLUTE AUTO 0.61 K/mm3 (0.16-1.47); MONOCYTES PERCENT AUTO 6 % (4-13); NEUTROPHILS PERCENT AUTO 83 % (41-73)
[2021-04-05 03:56] LABS: Magnesium, Blood 1.9 mg/dL (1.6-2.4)
[2021-04-05 03:57] LABS: Anion Gap 6 mmol/L (6-16); Blood Urea Nitrogen 19 mg/dL (8-24); Bun/Creatinine Ratio 26.3 (12.0-20.0); CO2, Blood 28 mmol/L (21-32); Calcium, Blood 8.7 mg/dL (8.5-10.1); Chloride, Blood 105 mmol/L (98-108); Creatinine, Blood 0.72 mg/dL (0.60-1.20); Glomerular Filtration Rate >60 (60-); Glucose, Blood 104 mg/dL (70-99); Phosphorus, Blood 3.6 mg/dL (2.5-4.9); Potassium, Blood 4.4 mmol/L (3.5-5.5); Sodium, Blood 139 mmol/L (136-145)
--- NOTE | 2021-04-05 07:41 | NUR ---
SHIFT SUMMARY: PATIENT A/OX3. HAS DENIED PAIN. ON BIPAP 16/10 FIO2 85-100% WHILE SLEEPING. WAS ONLY TOLERATING BEING ON AIRVO FOR APPROX 10 MINUTES AT A TIME BUT THIS AM HE HAS TOLERATED BEING ON THE AIRVO (50L 100% FIO2) FOR 45 MINUTES. HE HAS PRONED FOR SEVERAL HOURS THIS SHIFT. PLAN IS FOR POSSIBLE STATUS CHANGE FROM ICU TO PCU. REPORT GIVEN TO ONCOMING RN.
--- NOTE | 2021-04-05 20:04 | NUR ---
PT INTERMITTENTLY ON AIRVO 50L AT 90-100% WITH HUMIDIFIED HEAT FOR MEALS AND BIPAP 30/07 WITH NO HUMIDIFIED HEAT AT 90-100%, MAINTAINING SATS AT 86-100%, LOZANO REMOVED LATE PER PT'S REQUEST AT 1600, DUE TO VOID OF 1999, PT TOLERATED FULL LIQUID DIET WELL, PT'S SON AND UPDATED VIA PHONE, PT REPORTS FEELING BETTER, PT DENIES FURTHER CONCERNS AT THIS TIME
--- NOTE | 2021-04-06 05:44 | NUR ---
PT IS AXO X4. PT HAS MAINTAINED O2 SATS >90% ON BIPAP W 75% FIO2. PT TOLERATED AIRVO AT 50L 100% FIO2 WHILE EATING A LATE DINNER ONLY HAVING BRIEF DESATS INTO THE MID 80'S WHILE REPOSITIONING HIMSELF IN THE CHAIR. TELE HAS SHOWN SR IN THE 60'S W SB IN THE UPPER 50'S WHILE ASLEEP. BP MODERATELY ELEVATED ALTHOUGH BP'S WERE DONE W PT PRONED. PT REMAINED PRONE FOR APPROX 10 HRS THIS SHIFT. PT GIVEN ATIVAN X2 FOR ANXIETY BROUGHT ON BY THE BIPAP. PT IS ABLE TO TRANSFER SELF FROM CHAIR TO BED W NO SIGNIFICANT DESATURATION. WILL REPORT TO ONCOMING RN.
--- NOTE | 2021-04-06 14:26 | NUR ---
PT ALERT AND ORIENTED X4. NEURO WNL. ON BIPAP SETTINGS - 14/10 AND 74%. SATING MID 90'S. ABLE TO TAKE BIPAP BREAKS FOR MEALS, TRANSITIONED TO AIRVO AT 50L AND 100% SATS LOW 90'S. ABLE TO TOLERATE ARIVO FOR AROUND 1 HOUR. LUNGS SOUNDING DIM. TELE SHOWING SINUS WITH HR 60-70'S. DENIES CHEST PAIN/PRESSURE. VITAL SIGNS STABLE. BOWEL TONES PRESENT. ABDOMEN DISTENDED. USING URINAL AT BEDSIDE. UP IN RECLINER TODAY. PATIENT ABLE TO REPOSITION AND STAND. SBA FOR SAFETY. TOLERATING FULL LIQUID DIET. DENIES NEEDS AT THIS TIME. CALL LIGHT IN REACH. WILL CONTINUE TO MONITOR.
--- NOTE | 2021-04-06 18:11 | NUR ---
SHIFT SUMMARY: PT REMAINS ALERT AND ORIENTED X4. STATES HE JUST FEELS "CRUMPY". UP IN RECLINER TODAY SITTING UPRIGHT AND STANDING EVERY FEW HOURS TO CHANGE POSITION. TELE REMAINS UNCHANGED. BIPAP SETTINGS 14/10 AT 75% AND AIRVO AT 60L AND 100% WHEN EATING. PT TOLERATING REGULAR DIET. USING URINAL AT BEDSIDE/CHAIR. VITAL SIGNS REMAIN STABLE. ON AIRVO AT THIS TIME EATING DINNER. CALL LIGHT IN REACH. WILL CONTINUE TO MONITOR AND REPORT OFF.
--- NOTE | 2021-04-07 05:52 | NUR ---
DELI MANAGER SUMMARY PT IS AXO X4 AND USES THE CALL LIGHT APPROPRIATELY. O2 SATS >92% ON CPAP W 75% FIO2 FOR FIRST HALF OF THE SHIFT AND 65% FIO2 THE SECOND HALF. PT ABLE TO LIE PRONE FOR 10 HOURS TRHIS SHIFT. BP WNL AND STABLE THIS SHIFT. TELE SHOWING SR IN THE 60'S THIS SHIFT. NO EPISODE OF DESATURATIONS THIS SHIFT. WILL REPORT TO ONCOMING RN.
--- NOTE | 2021-04-07 09:27 | NUR ---
Pt complained of feeling a heaviness in his chest at this time. STates it started before he got up to the chair from bed this morning. He is sitting in chair now, starting to eat breakfast. STates that the heaviness is new today, and feels like he needs to cough up mucous, but he has n't been coughing that much up. Guaifenisin given per prn orders. Very small amounts of mucous are coughed up. Noted pt is requiring only 75% fio2 on the cpap, but with AirVo he is on 95% fio2 and spo2 maintaining only 87% while talking. fio2 increased to 100% at this time on AirVo while he is eating breakfast.
--- NOTE | 2021-04-07 10:42 | NUR ---
pt back on cpap at this time. He was able to maintain spo2 88-90% finally on the airVo earlier. At this time, cpap is 12 ipip and 75% fio2, with spo2 maintaining 93-95%.
--- NOTE | 2021-04-07 14:59 | NUR ---
pt continues to tolerate the AirVo at current settings, SpO2 steady at 94% while he is sitting up in the recliner chair, following lunch. He said that the heaviness which he noticed this morning was improved somewhat this afternoon after being able to cough and expectorate some mucous.
--- NOTE | 2021-04-07 17:25 | NUR ---
Placed on AirVo for dinner. O2 flowis 60 L, on 60% Fio2. Initially spo2 dropped to 87%, but improved slowly. Pt states he is worried about sleeping tonight since he has been sleeping in the recliner all day. STates he thought that he slept okay last night.
--- NOTE | 2021-04-07 18:08 | NUR ---
Pt remains on AirVo, 60 L flow and 60% FiO2, spo2 88%. Pt states he is feeling ok and doesn't need the CPAP yet.
--- NOTE | 2021-04-08 05:39 | NUR ---
SUMMARY PT REMAINS A&O X4, HE WAS ABLE TO SIT UP IN THE CHAIR THIS EVENING ON AIRVO @60 L 60% FIO2, RESP UNLABORED UNTIL APPROX 2300, PT GOT UP TO THE BSC FOR A BM, AFTER RETURNING TO THE CHAIR SPO2 REMAINED 84-88%, PT STATED HE "FELT OKAY" FIO2 WAS INCREASED TO 70%, SPO2 INCREASED TO 94%, DB&C ENC. TYLENOL & COUGH SYRUP WAS GIVEN FOR CHEST DISCOMFORT, PO ATIVAN @ HS PER PT REQUEST. PT HAS BEEN IN PRONE POSITION WHILE SLEEPING, HE IS TOLERATING THIS WITH NO PROBLEMS. CALL LIGHT IN REACH, WCTM AT THIS TIME.
--- NOTE | 2021-04-08 08:50 | NUR ---
PATIENT UP TO CHAIR FOR BREAKFAST. ON HIFLOW NC 60L 100% FIO2. O2 SATURATION MAINTAINING LOW 90S.
--- NOTE | 2021-04-08 13:30 | NUR ---
PATIENT SITTING UP TO CHAIR RESTING. HIGH FLOW NC IN PLACE AT 60L, 85% FIO2. PATIENT'S OXYGEN SATURATION MAINTAINING MID 90S. ORAL CARE SUPPLIES PROVIDED AT BEDSIDE.
--- NOTE | 2021-04-08 16:00 | NUR ---
UPDATE PATIENT BACK TO CPAP, CPAP 9, 60% OXYGEN. SATURATIONS MAINTAINING MID 90'S. PATIENT WILL GO BACK TO HIGH FLOW FOR DINNER.
--- NOTE | 2021-04-08 18:32 | NUR ---
SHIFT SUMMARY A&Ox4 THIS SHIFT. VSS STABLE. PATIENT ABLE TO MAKE NEEDS KNOWN TO STAFF. PATIENT SWITCHED BETWEEN CPAP AND HIGH FLOW NC MAINTAINING OXYGEN SATURATIONS ABOVE 90% THROUGHOUT THE DAY. PATIENT HAS BEEN SITTING UP TO CHAIR THE MAJORITY OF THIS SHIFT COMFORTABLY. CALL LIGHT IS IN REACH OF PATIENT. SETTINGS: CPAP 9, 60% FIO2, AIRVO CURRENTLY AT 60L, 80% FIO2.
--- NOTE | 2021-04-08 22:58 | NUR ---
ASSUMED CARE AT 1900 PT UP TO CHAIR AND IS ALERT/ORIENTED X4 AND IS ABLE TO MAKE HIS NEEDS KNOWN. SPO2 >94% ON HIGH FLOW 60L, FIO2 80%; OCCATIONAL NONPRODUCTIVE COUGH NOTED. SINUS CALEB WITH HR 59, SBP 130'S. CALL LIGHT WITHIN REACH. SEE SHIFT ASSESSMENT FOR FULL ASSESSMENT.
--- NOTE | 2021-04-09 06:46 | NUR ---
END OF SHIFT SUMMARY NO ACUTE EVENTS OVER NIGHT. PT WENT TO BED AROUND 0000 AND WAS PLACED ON CPAP AND PRONED; CONT TO BE PRONED UNTIL 0600 AND TOLERATED WELL. CPAP SETTINGS 9/FIO2 60%. PT IS ALERT/ORIENTED X4 AND ABLE TO MAKE HIS NEEDS KNOWN. SINUS CALEB WITH HR 50-60'S. BP STABLE. USES URINAL INDEPENDENTLY. WILL REPORT TO AM RN WHEN AVAILABLE.
--- NOTE | 2021-04-09 07:30 | NUR ---
ASSUMED CARE: PT ON 60L WITH 80% FIO2. SON AT BEDSIDE. NSR ON TELE. NO ACUTE NEEDS AT THIS TIME.
--- NOTE | 2021-04-09 13:27 | NUR ---
PT STATED THAT SINCE HIS LOZANO WAS REMOVED HE CONTINUES TO FEEL THE URGE TO URINATE AND IS NOT HAVING PROBLEMS VOIDING BUT ALWAYS FEELS LIKE HE HAS TO. DISCUSSED THIS WITH DR PERAZA. SEE NEW ORDERS
--- NOTE | 2021-04-09 18:38 | NUR ---
SHIFT SUMMARY: PT MOVES IN ROOM INDEPENDENTLY, PRONING AND UP IN RECLINER. REMAINS ON 60L AIRVO WITH 60% FIO2. FAMILY GIVEN AN UPDATE TODAY. NO FURTHER NEEDS OR CONCERNS AT THIS TIME.
--- NOTE | 2021-04-10 06:27 | NUR ---
SHIFT SUMMARY PATIENT A&OX4, UP AD DESTINEY IN ROOM. GEN FATIGUE. VSS. ON AIRVO 60L, 60% SATING MID 90'S AND CPAP FOR SLEEP WITH 60% FIO2. SR/SB ON THE MONITOR. SOME DULL TYPE CP WITH BREATHING BUT STABLE AND EDUCATED TO LET RN IF WORSENS OR BECOMES SHARP. NO PAIN OR DISTRESS NOTED UPON ASSESSMENT. TOLERATING REG DIET. 2 LARGE BM'S THIS SHIFT. VOIDING WELL PER URINAL. WILL CONTINUE TO MONITOR UNTIL REPORT GIVEN TO DAYSHIFT RN.
--- NOTE | 2021-04-10 17:22 | NUR ---
SHIFT SUMMARY PT DID WELL THIS SHIFT. PT HAS REMAINED AWAKE, ALERT, AND ORIENTED THIS SHIFT. PT UP TO RECLINER CHAIR THIS AFTERNOON. PT STANDS AND AMBULATES WITH SBA WELL. PT ON AIRVO THROUGHOUT THE DAY WITH SETTINGS TITRATED DOWN TO 55L, FIO2 50%. VITAL SIGNS STABLE. PT USES URINAL TO VOID CLEAR YELLOW URINE INDEPENDENTLY. PT TOLERATES PO INTAKE WELL. PT SPOUSE UPDATED VIA PHONE TODAY. IV SALINE LOCKED. WILL CONTINUE TO MONITOR AND REPORT OFF TO ONCOMING RN.
--- NOTE | 2021-04-11 06:38 | NUR ---
SHIFT SUMMARY PT HAS SLEPT THROUGH THE NIGHT. AT THE BEGINNING OF SHIFT PT STATED "I'M GOING HOME TOMORROW" AND WAS ABLE TO BE REORIENTED TO CURRENT SITUATION AND LIMITATIONS. PT PRONED SELF AND WOULD HAVE SPO2 >90% WHILE PRONE, WHEN PT WOULD TURN TO BACK THEN SPO2 WOULD REMAIN 87-90%. AT ONE POINT THE PT REMOVED THE NASAL CANNULA AND NEEDED TO BE VERBALLY REDIRECTED IN ORDER FOR IT TO BE PLACED BACK ON, SATS DIPPED TO 83% DURING THIS INCIDENT. NO OTHER ACUTE CHANGES NOTED.
--- NOTE | 2021-04-11 06:48 | NUR ---
SHIFT SUMMARY PT HAS BEEN SLEEPING FOR THE MAJORITY OF THE NIGHT. PT PRONED SELF AND HAS MAINTAINED AN SPO2 OF >92% FOR THE DURATION OF THE NIGHT. NO ACUTE CHANGES NOTED.
--- NOTE | 2021-04-11 17:03 | NUR ---
SHIFT SUMMARY PT CONTINUES TO IMPROVE THIS SHIFT. PT HAS REMAINED AWAKE, ALERT, AND ORIENTED THROUGHOUT THE DAY. PT UP IN CHAIR MOST OF THE SHIFT. PT PLACED ON 15L O2 VIA NC THIS AM AND HAS BEEN TITRATED DOWN TO 12L. VITAL SIGNS HAVE REMAINED STABLE. SPO2 >90%. PT HAS DENIED SOB THROUGHOUT THE SHIFT. IV'S SALINE LOCKED. PT TAKING PO INTAKE WELL. PT USING URINAL INDEPENDENTLY TO VOID. WILL CONTINUE TO MONITOR AND REPORT OFF TO ONCOMING RN.
--- NOTE | 2021-04-11 22:56 | NUR ---
SHIFT SUMMARY/ XFER TO RM 340 NO ACUTE CHANGES SINCE ASSUMING CARE, NO C/O ANY KIND, REMAINS ON 12 02, MAINTAINING SATS +90%, REPORT CALLED TO RADHA HARDY @ 5295, PT XFER'D W/ALL BELONGINGS VIA W/C TO RM 340 @ 0693.
--- NOTE | 2021-04-11 23:14 | NUR ---
TRANSFER NOTE REPORT TAKEN FROM ARABELLA HUFF RN IN PCU. PT STILL ON SUPPORTIVE OXYGEN THERAPY FOR COVID-19. PT BROUGHT TO ROOM 340 BY WHEELCHAIR AND UP INTO THE RECLINER. CALL LIGHT WITHIN REACH. URINAL WITHIN REACH. ISOLATION MAINTAINED.
--- NOTE | 2021-04-12 06:29 | NUR ---
SHIFT SUMMARY ADMITTED FOR SUPPLEMENTAL OXYGEN THERAPY FOR COVID-19. PT IS FULL CODE. TRANSFERRED FROM PCU. PT WAS DECREASED TO 11L BY HIGH FLOW CANNULA AND HAS BEEN USING A CPAP MACHINE AT NIGHT WHILE SLEEPING PRONE. CONTINUES TO BE MONITORED BY TELE. NO OTHER CONCERNS AT THIS TIME.
[2021-04-12 13:16] LABS: Hematocrit 45.4 % (37.0-53.0); Hemoglobin 15.5 g/dL (13.5-17.5)
[2021-04-12 13:35] LABS: Anion Gap 10 mmol/L (6-16); Blood Urea Nitrogen 19 mg/dL (8-24); CO2, Blood 25 mmol/L (21-32); Calcium, Blood 9.2 mg/dL (8.5-10.1); Chloride, Blood 101 mmol/L (98-108); Creatinine, Blood 0.73 mg/dL (0.60-1.20); Glomerular Filtration Rate >60 (60-); Glucose, Blood 129 mg/dL (70-99); Sodium, Blood 136 mmol/L (136-145)
--- NOTE | 2021-04-12 18:47 | NUR ---
PT REMAINS ON 11L HIGH FLOW WITH NO INCREASED NEEDS. NO COMPLAINTS AND REMIANS ALERT AND ORIENTED X4. STAFF WILL CONTINUE TO MONITOR.
--- NOTE | 2021-04-13 03:47 | NUR ---
ELECTROCARDIOGRAPHIC TECHNICIAN SUMMARY ADMITTED FOR OXYGEN SUPPLEMENTATION AND HYPOXIA SECONDARY TO COVID-19. PT REMAINS ON 11L OF HIGH FLOW OXYGEN THROUGHOUT THE DAY AND WEARS A CPAP AT HS. PT SATURATION MAINTAINS ABOVE 95% THROUGHOUT THE NIGHT. PT MEDICATED WITH PRN COUGH MEDICINE, ATIVAN, AND TYLENOL AT HS. PT ABLE TO STAY PRONE DURING SLEEP. NO OTHER CONCERNS AT THIS TIME. ISOLATION MAINTAINED. CALL LIGHT WITHIN REACH.
--- NOTE | 2021-04-13 19:46 | NUR ---
SUMM- PT A/O X4, UP IN CHAIR MOST OF THE DAY. USES URINAL, DRINKS ALOT OF WATER. TOLERATING FOOD. LUNGS WITH CX IN BASES, AND EXERTIONAL SOB. SATS 93-96% HIGH FLOW O2 11L. TELE SR IN 60'S.
--- NOTE | 2021-04-14 06:19 | NUR ---
SHIFT SUMMARY PATIENT ALERT AND ORIENTED. MEDICATED PER EMAR FOR ANXIETY, COUGH, AND HEADACHE. NO ACUTE ISSUES NOTED OVERNIGHT. O2 TITRATED DOWN TO 8 LITERS VIA HIGH FLOW NASAL CANULA WHILE AWAKE. CONTINUES WITH CPAP AT NIGHT. CALL LIGHT WITHIN REACH. REPORT GIVEN TO ONCOMING RN.
--- NOTE | 2021-04-14 18:40 | NUR ---
PT A/O X4, UP IN CHAIR MOST OF THE DAY, NO C/O PAIN, LS DIM IN BASES. REMAINS ON 8L HI FLOW AND USES CPAP AT NIGHT. TELE WAS SR IN 60's THIS AM. NO ACUTE CHANGES NOTED THIS SHIFT, WILL CONTINUE TO MONITOR AND REPORT ONCOMING RN
--- NOTE | 2021-04-15 07:20 | NUR ---
SHIFT SUMMARY PATIENT ALERT AND ORIENTED. MEDICATED PER EMAR FOR COUGH, PAIN, AND ANXIETY. NO ACUTE ISSUES NOTED OVERNIGHT. CALL LIGHT WITHIN REACH. REPORT GIVEN TO ONCOMING RN.
--- NOTE | 2021-04-15 13:48 | NUR ---
Introduction: PT refered by nursing staff. Assessment: PT presented seated in chair, pleasant demeanor. PT had just been bathed and was glad to be feeling clean. PT relayed that he had phone contact with his and children, particularly thankful for eldest son's visits(hospital staff). PT described how james life is, "How fragile life is." PT did not understand how matter of fact, eldest son was, in regards to . When asked to expand upon that, PT became emotional thinking that PT had been in a state where was very possible, due to covid. When asked if PT was sikh, PT replied, "I'm on the fence." and became emotional. Intervention: Offered PT Fredy wills. Offered PT prayer. Outcome: PT accepted bible and was thankful for the visit. PT accepted prayer. Follow-Up: As needed or requested.
--- NOTE | 2021-04-15 16:46 | NUR ---
SHIFT SUMMARY NO ACUTE CHANGES, A&Ox4, VSS. PT TITRATED DOWN TO 4 L/MIN VIA NC FROM 8 L/MIN. PT IS SATING ABOVE 90%. TOLERATIVE ACTIVITY WELL, DOES REPORT SOME SOB c EXERTION BUT SATS REMAIN WNL. DENIES ANY PAIN OR DISTRESS T/O SHIFT. ORAL INTAKE IS GOOD. CALLS APPROPRIATELY.
--- NOTE | 2021-04-16 04:38 | NUR ---
RECRUITING INTERN SUMMARY PT A/O X4, SLEPT WELL OVERNIGHT. PT REFUSED CPAP OVERNIGHT. PT CONTINUES TO BE ON 3L O2 SATTING IN THE LOW 90'S.NO ACUTE CHANGES, VITALS STABLE, WILL CONTINUE TO MONITOR.
[2021-04-16 05:51] LABS: BASOPHILS ABSOLUTE AUTO 0.01 K/mm3 (0.00-0.23); BASOPHILS PERCENT AUTO 0 % (0-2); EOSINOPHILS ABSOLUTE AUTO 0.02 K/mm3 (0.00-0.68); EOSINOPHILS PERCENT AUTO 0 % (0-6); Hematocrit 41.8 % (37.0-53.0); Hemoglobin 14.1 g/dL (13.5-17.5); IMMATURE GRAN ABSOLUTE AUTO 0.04 K/mm3 (0.00-0.10); IMMATURE GRAN PERCENT AUTO 1 % (0-1); LYMPHOCYTES ABSOLUTE AUTO 0.82 K/mm3 (0.84-5.20); LYMPHOCYTES PERCENT AUTO 10 % (21-46); MONOCYTES ABSOLUTE AUTO 0.51 K/mm3 (0.16-1.47); MONOCYTES PERCENT AUTO 6 % (4-13); Mean Corpuscular HGB 29.6 pg (26.0-34.0); Mean Corpuscular HGB Conc 33.7 g/dL (31.5-36.5); Mean Corpuscular Volume 88 fL (80-100); Mean Platelet Volume 9.8 fL (9.1-12.4); NEUTROPHILS ABSOLUTE AUTO 6.82 K/mm3 (1.96-9.15); NEUTROPHILS PERCENT AUTO 83 % (41-73); Platelet Count 211 K/mm3 (150-400); RDW Coefficient Variation 12.9 % (11.7-14.2); RDW Standard Deviation 41.5 fL (35.1-46.3); Red Blood Cell Count 4.76 M/mm3 (4.30-5.90); White Blood Cell Count 8.22 K/mm3 (4.00-11.30)
[2021-04-16 06:14] LABS: Alanine Aminotransfer (ALT/SGP 88 U/L (12-78); Albumin, Blood 2.6 g/dL (3.4-5.0); Albumin/Globulin Ratio 0.6 (0.8-1.8); Alk Phos 38 U/L (50-136); Anion Gap 6 mmol/L (6-16); Aspartate Aminotrans (AST/SGOT 21 U/L (12-37); Bilirubin, Total 0.5 mg/dL (0.1-1.0); Blood Urea Nitrogen 14 mg/dL (8-24); CO2, Blood 27 mmol/L (21-32); Calcium, Blood 8.1 mg/dL (8.5-10.1); Chloride, Blood 103 mmol/L (98-108); Creatinine, Blood 0.67 mg/dL (0.60-1.20); Globulin, Blood 4.2 g/dL (2.2-4.0); Glomerular Filtration Rate >60 (60-); Glucose, Blood 125 mg/dL (70-99); Magnesium, Blood 2.4 mg/dL (1.6-2.4); Potassium, Blood 4.3 mmol/L (3.5-5.5); Sodium, Blood 136 mmol/L (136-145); Total Protein, Blood 6.8 g/dL (6.4-8.2)
[2021-04-16] MEDS ORDERED: ASCO500 PO (11:48)
[2021-04-16] MEDS ORDERED: Acetaminophen325 M1 PO (11:48)
[2021-04-16] MEDS ORDERED: BISA10S PR (11:49)
[2021-04-16] MEDS ORDERED: Guaifenesin Wit10 ML PO (11:50)
[2021-04-16] MEDS ORDERED: DOCU100 PO (11:50)
[2021-04-16] MEDS ORDERED: Ativan1 MG PO (11:51)
[2021-04-16] MEDS ORDERED: ONDA4ODT MM (11:52)
[2021-04-16] MEDS ORDERED: OMEP20ER PO (11:52)
[2021-04-16] MEDS ORDERED: SENNA LAXATIVE8.6 MG PO (11:53)
[2021-04-16] MEDS ORDERED: TAMS.4ER PO (11:53)
[2021-04-16] MEDS ORDERED: VISBIOME 112.51 EACH PO (11:54)
[2021-04-16] MEDS ORDERED: VITAMIN D5000 UNIT PO (11:54)
[2021-04-16] MEDS ORDERED: ZINC220 PO (11:55)
--- NOTE | 2021-04-16 12:19 | NUR ---
HOME 02 EVAL PATIENT OXYGEN SATURATION 89% ON 3L/NC AT REST. PATIENT 89% ON 4L/NC WHEN STANDING. PATIENT 90-91% ON 6L/NC WITH AMBULATION IN ROOM.
--- NOTE | 2021-04-16 15:55 | NUR ---
DISCHARGE SUMMARY PT DISCHARGED @ APPROX 1600 VIA WHEELCHAIR BY ASSEMBLY INSPECTOR TO PRIVATE VEHICLE. HOME O2 EVAL COMPLETED AND HOME O2 PROVIDED BY [facility]. DISCHARGE PAPERWORK REVIEWED c PT WELL NEW MEDICATIONS. PT STATES HE HAS NO QUESTIONS @ THIS TIME AND HAS ALL OF HIS BELONGINGS. IV REMOVED AND SITES APPEAR WNL.
== END 2021-04-16 16:02 | disposition home or self-care (01) | DRG 177 ==
LOC: ER 13:21 → MEDS 18:08 → ICUW 18:08 → MEDS 22:12 → ICUW 04-02 09:20 → PCU 04-04 13:55 → MEDS 04-11 22:45
PROVIDERS: Family Medicine; Internal Medicine; Internal Medicine Critical Care Medicine; Physician Assistant; Student in an Organized Health Care Education/Training Program; ADMIT Internal Medicine
PROC: 8E0ZXY6 Isolation (ICD-10-PCS; principal; 2021-03-31)
PROC: 3E0333Z Introduction of Anti-inflammatory into Peripheral Vein, Percutaneous Approach (ICD-10-PCS; 2021-04-01)
PROC: XW033E5 Introduction of Remdesivir Anti-infective into Peripheral Vein, Percutaneous Approach, New Technology Group 5 (ICD-10-PCS; 2021-04-01)
PROC: 5A0955A Assistance with Respiratory Ventilation, Greater than 96 Consecutive Hours, High Flow/Velocity Cannula (ICD-10-PCS; 2021-04-01)
PROC: 5A09357 Assistance with Respiratory Ventilation, Less than 24 Consecutive Hours, Continuous Positive Airway Pressure (ICD-10-PCS; 2021-04-12)
DX: U07.1 COVID-19 (principal); J12.82 Pneumonia due to coronavirus disease 2019; J96.01 Acute respiratory failure with hypoxia; Z68.41 Body mass index [BMI] 40.0-44.9, adult; I24.8 Other forms of acute ischemic heart disease; E66.01 Morbid (severe) obesity due to excess calories; Z88.2 Allergy status to sulfonamides; Z90.49 Acquired absence of other specified parts of digestive tract; Z98.890 Other specified postprocedural states
CPT/HCPCS: 36415; 36600; 71045; 71260; 80048; 80053; 81001; 82803; 83735; 84100; 84484; 85014; 85018; 85025; 86140; 87086; 93005; 93010; 94660; 94762; 96374; 96375; 97161; 97530; 99285-25; A9270; J1100; J1650; J1885; J2060; J2405; J7030; J7050; J7512; Q9967

== ENCOUNTER 2021-04-28 18:48 | Inpatient (IN) | payer OTHER ==
[~2021-04-28] VITALS: Ht 182.9 cm; Wt 140.0 kg
[~2021-04-28 18:48] MED LIST changes: +ASCO500 PO; +Acetaminophen325 M1 PO; +Ativan1 MG PO; +BISA10S PR; +CEFD300 PO; +CEFDINIR300 M4 PO; +DOCU100 PO; +Guaifenesin Wit10 ML PO; +OMEP20ER PO; +ONDA4ODT MM; +Prednisone10 MG PO; +SENNA LAXATIVE8.6 MG PO; +TAMS.4ER PO; +VISBIOME 112.51 EACH PO; +VITAMIN D5000 UNIT PO; +ZINC220 PO; +Zithromax Tri-500 MG PO
[2021-04-28 19:28] LABS: BASOPHILS ABSOLUTE AUTO 0.04 K/mm3 (0.00-0.23); BASOPHILS PERCENT AUTO 0 % (0-2); EOSINOPHILS ABSOLUTE AUTO 0.14 K/mm3 (0.00-0.68); EOSINOPHILS PERCENT AUTO 1 % (0-6); Hemoglobin 16.3 g/dL (13.5-17.5); IMMATURE GRAN ABSOLUTE AUTO 0.04 K/mm3 (0.00-0.10); IMMATURE GRAN PERCENT AUTO 0 % (0-1); LYMPHOCYTES PERCENT AUTO 13 % (21-46); MONOCYTES ABSOLUTE AUTO 0.78 K/mm3 (0.16-1.47); MONOCYTES PERCENT AUTO 8 % (4-13); Mean Corpuscular Volume 88 fL (80-100); Mean Platelet Volume 9.3 fL (9.1-12.4); NEUTROPHILS ABSOLUTE AUTO 8.03 K/mm3 (1.96-9.15); NEUTROPHILS PERCENT AUTO 77 % (41-73); Platelet Count 229 K/mm3 (150-400); RDW Coefficient Variation 13.2 % (11.7-14.2); RDW Standard Deviation 42.7 fL (35.1-46.3); Red Blood Cell Count 5.43 M/mm3 (4.30-5.90); White Blood Cell Count 10.43 K/mm3 (4.00-11.30)
[2021-04-28 19:49] LABS: Alanine Aminotransfer (ALT/SGP 52 U/L (12-78); Albumin, Blood 3.6 g/dL (3.4-5.0); Albumin/Globulin Ratio 0.8 (0.8-1.8); Alk Phos 47 U/L (50-136); Anion Gap 9 mmol/L (6-16); Aspartate Aminotrans (AST/SGOT 22 U/L (12-37); Bilirubin, Total 0.5 mg/dL (0.1-1.0); Blood Urea Nitrogen 10 mg/dL (8-24); Bun/Creatinine Ratio 13.1 (12.0-20.0); CO2, Blood 25 mmol/L (21-32); Calcium, Blood 9.5 mg/dL (8.5-10.1); Chloride, Blood 106 mmol/L (98-108); Creatinine, Blood 0.76 mg/dL (0.60-1.20); Globulin, Blood 4.4 g/dL (2.2-4.0); Glomerular Filtration Rate >60 (60-); Glucose, Blood 107 mg/dL (70-99); Sodium, Blood 140 mmol/L (136-145)
[2021-04-28] MEDS ORDERED: LORAZEPAM0.5 MG PO (21:52)
[2021-04-28] MEDS ORDERED: TAMSULOSIN HCL0.4 M1 PO (21:53)
[2021-04-28] MEDS ORDERED: OMEP20ER PO (23:21)
[2021-04-29 05:10] LABS: BASOPHILS ABSOLUTE AUTO 0.02 K/mm3 (0.00-0.23); BASOPHILS PERCENT AUTO 0 % (0-2); EOSINOPHILS ABSOLUTE AUTO 0.22 K/mm3 (0.00-0.68); EOSINOPHILS PERCENT AUTO 3 % (0-6); Hematocrit 40.4 % (37.0-53.0); Hemoglobin 13.7 g/dL (13.5-17.5); Mean Corpuscular HGB 30.5 pg (26.0-34.0); Mean Corpuscular HGB Conc 33.9 g/dL (31.5-36.5); Mean Corpuscular Volume 90 fL (80-100); Mean Platelet Volume 9.1 fL (9.1-12.4); Platelet Count 177 K/mm3 (150-400); RDW Coefficient Variation 13.2 % (11.7-14.2); RDW Standard Deviation 43.3 fL (35.1-46.3); Red Blood Cell Count 4.49 M/mm3 (4.30-5.90); White Blood Cell Count 6.94 K/mm3 (4.00-11.30)
[2021-04-29 05:19] LABS: IMMATURE GRAN ABSOLUTE AUTO 0.02 K/mm3 (0.00-0.10); IMMATURE GRAN PERCENT AUTO 0 % (0-1); LYMPHOCYTES ABSOLUTE AUTO 1.49 K/mm3 (0.84-5.20); LYMPHOCYTES PERCENT AUTO 22 % (21-46); MONOCYTES ABSOLUTE AUTO 0.79 K/mm3 (0.16-1.47); MONOCYTES PERCENT AUTO 11 % (4-13); NEUTROPHILS PERCENT AUTO 63 % (41-73)
[2021-04-29 05:32] LABS: Anion Gap 5 mmol/L (6-16); Blood Urea Nitrogen 12 mg/dL (8-24); Bun/Creatinine Ratio 13.4 (12.0-20.0); CO2, Blood 29 mmol/L (21-32); Calcium, Blood 8.7 mg/dL (8.5-10.1); Chloride, Blood 107 mmol/L (98-108); Creatinine, Blood 0.89 mg/dL (0.60-1.20); Glomerular Filtration Rate >60 (60-); Glucose, Blood 101 mg/dL (70-99); Potassium, Blood 3.8 mmol/L (3.5-5.5); Sodium, Blood 141 mmol/L (136-145)
--- NOTE | 2021-04-29 06:39 | NUR ---
SHIFT SUMMARRY PATIENT ALERT AND ORIENTED. DENIES PAIN. HAD A QUIET NIGHT UNTIL ABOUT 6:30 WHEN HE EXPERIENCED SOB. RT CALLED REQUESTED CHEST-RAY TO EVALUATE PLACEMENT OF THOROVENT. AWAITING REPORT
[2021-04-29 10:27] LABS: SARS-Cov-2 (COVID-19) PCR, MMC NEGATIVE (NEGATIVE)
--- NOTE | 2021-04-29 17:17 | NUR ---
SHIFT SUMMARY PT IS ON 7L OF 02 SATTING 96%. AT START OF SHIFT THOROUGHVENT WAS FULL OF SANGUINOUS DRAINAGE AND PT FELT SOB. DESIGNER WRITER CONDSULTED AND GOT HIM ATTACHED TO SUCTIONING. 02 SATS AND SOB RESOLVED ONCE SUCTION WAS IN USE. PT DENIES PAIN. STATES HE HAS SOME ANXIETY CONTROLLED PER MAR MEDICATION. PT XRAYS SHOWED PNUEMONIA, BUT COVID TEST WAS NEGATIVE. PULMONOLOGY/ AWARE OF PNEUMONIA, NO ABX ORDERED. WILL CONTINUE TO MONITOR.
--- NOTE | 2021-04-30 04:29 | NUR ---
SHIFT SUMMARY PT ADMITTED FOR A PNEUMOTHORAX. CHEST TUBE TO UPPER OUTTER CHEST WALL, CONNECT TO SUCTION. TIDALING NOTED, LINE FREE OF KINKS. MINIMUM DRAINAGE NOTED THROUGHOUT SHIFT. PT C/O SOB AFTER EXCERTION. SATS 90-95 DURING SHIFT. AAOX4. ABLE TO MAKE NEEDS KNOWN. CALL LIGHT WITHIN REACH.
[2021-04-30 04:36] LABS: BASOPHILS ABSOLUTE AUTO 0.03 K/mm3 (0.00-0.23); BASOPHILS PERCENT AUTO 1 % (0-2); EOSINOPHILS PERCENT AUTO 3 % (0-6); Hematocrit 39.6 % (37.0-53.0); Hemoglobin 13.2 g/dL (13.5-17.5); IMMATURE GRAN ABSOLUTE AUTO 0.03 K/mm3 (0.00-0.10); IMMATURE GRAN PERCENT AUTO 1 % (0-1); LYMPHOCYTES ABSOLUTE AUTO 1.15 K/mm3 (0.84-5.20); LYMPHOCYTES PERCENT AUTO 17 % (21-46); MONOCYTES ABSOLUTE AUTO 0.71 K/mm3 (0.16-1.47); MONOCYTES PERCENT AUTO 11 % (4-13); Mean Corpuscular HGB 29.9 pg (26.0-34.0); Mean Corpuscular HGB Conc 33.3 g/dL (31.5-36.5); Mean Corpuscular Volume 90 fL (80-100); Mean Platelet Volume 9.4 fL (9.1-12.4); NEUTROPHILS ABSOLUTE AUTO 4.53 K/mm3 (1.96-9.15); NEUTROPHILS PERCENT AUTO 68 % (41-73); Platelet Count 196 K/mm3 (150-400); RDW Coefficient Variation 13.1 % (11.7-14.2); RDW Standard Deviation 43.3 fL (35.1-46.3); Red Blood Cell Count 4.41 M/mm3 (4.30-5.90); White Blood Cell Count 6.65 K/mm3 (4.00-11.30)
[2021-04-30 04:54] LABS: Anion Gap 5 mmol/L (6-16); Blood Urea Nitrogen 8 mg/dL (8-24); Bun/Creatinine Ratio 10.4 (12.0-20.0); CO2, Blood 29 mmol/L (21-32); Calcium, Blood 8.6 mg/dL (8.5-10.1); Chloride, Blood 105 mmol/L (98-108); Creatinine, Blood 0.77 mg/dL (0.60-1.20); Glomerular Filtration Rate >60 (60-); Glucose, Blood 99 mg/dL (70-99); Potassium, Blood 3.6 mmol/L (3.5-5.5); Sodium, Blood 139 mmol/L (136-145)
--- NOTE | 2021-04-30 17:25 | NUR ---
SHIFT SUMMARY PT NOW ON 10L OF 02 FOR TO ACCOMADATE DESATTING WHILE MOVING. PULMONOLOGY RECCOMENDED SITTING UPRIGHT IN RECLINER FOR MEALS TO HELP PROMOTE PROPER LUNG REEXPANSION. PT IS TOLERATING TIME IN THE RECLINER. DENIES PAIN, SOME SOB UPON TRANSFER, BUT NON WHILE SITTING. WILL CONTINUE TO MONITOR.
--- NOTE | 2021-05-01 04:21 | NUR ---
SHIFT SUMMARY PT ADMITTED FOR PNEUMOTHORAX. CHEST TUBE TO OUTTER RIGHT CHEST WALL. TIDALING NOTED THROUGHOUT SHIFT. MINIMUM OUTPUT.NO DISTRESS NOTED. AAOX4. ABLE TO MAKE NEEDS KNOWN. CALL LIGHT WITHIN REACH. VS STABLE.
--- NOTE | 2021-05-01 10:44 | NUR ---
PT QUITE PLEASANT COOP A/O. STATES WORKS [employer]. DENIES PAIN AT THIS TIME. PRESENTLY ON CHEST TUBE TO WALL SUCTION. BUBBLING. LUNGS CLEAR UPPER, CRACKLES LOWER. ON 9L O2 HIFLO N/C. BT X4 LAST BM FEW DAYS. HE REQUESTED BOWEL CARE FROM FEW MIN PRIOR. WILL MED PER EMAR. VOIDS PER URINAL. BED IN LOW POSITION, CALL LITE IN REACH, 1 SBA FOR TRANSFER FOR TUBE PROTECTIONS. CALLS APPROP
--- NOTE | 2021-05-01 18:46 | NUR ---
PT QUITE PLEASANT TODAY. DID REQUEST O2 INCREASED 2L WHEN UP TO BSC TO COMPENSATE FOR SOB. DONE. PT STATES THAT THE COUGH IS PRETTY MUCH SAME TODAY. STILL ON CHEST TUBE TO WALL SUCTION. PT HAS BEEN SITTING IN CHAIR. CALL LITE IN REACH, CALLS APPROP
--- NOTE | 2021-05-02 04:12 | NUR ---
SHIFT SUMMARY FULL CODE PT ADMITTED FOR PNEUMOTHORAX. CHEST TUBE TO SUCTION TO RIGHT OUTTER CHEST WALL. TIDALING NOTED. PT HASNT C/O SOB DURING THIS SHIFT. NO SIGNIFICANT CHANGES DURING THIS SHIFT. VS STABLE, SATS ABOVE 95.
--- NOTE | 2021-05-02 15:20 | NUR ---
PATIENT REMAINS STABLE DENIES PAIN OR DISCOMFORT RESP EVEN/UNLABORED NO DISTRESS NOTED CHEST TUBE REMAINS INTACT TO RT. CHEST PER WATER SEAL ORDERED BY RETORT SETTER PATIENT TOLERATING WELL O2 @9 L NC SATS REMAINING >95% PATIENT UP IN CHAIR AT THIS TIME A&OX4 ABLE TO VERBALIZE NEEDS WILL CONT TO MONITOR
--- NOTE | 2021-05-02 18:09 | NUR ---
PATIENT ABLE TO BE WEANED DOWN TO 7 L O2 PER NC TOLERATING WELL SATS REMAIN >95% DENIES SOB RESP UNLABORED WILL CONT TO MONITOR ENCOURAGED USE OF INCENTIVE SPIROMETER PATIENT VERBALIZES UNDERSTANDING
--- NOTE | 2021-05-03 04:11 | NUR ---
SHIFT SUMMARY PT ADMITTED FOR PNEUMOTHORAX. CHEST TUBE TO WATER SEAL. PT AAOx4. PT SATS DROPPED TO 83 DURING SHIFT , DENIED SOB. RT AT BED SIDE. NO DISTRESSED. SATS WENT BACK UP TO 94%. CURRENTLY ON 9L. NO OTHER CHANGES DURING THIS SHIFT.
--- NOTE | 2021-05-03 18:33 | NUR ---
PT IS AO X 4,PT IS STABLE,PT DENIES PAIN, N/V, SOB.CHEST TUBE TO WATER SEAL REMAIN INTACT.PT IS ON 5L NC SATS IN THE 90'S,PT HAVE NO ACUTES CHANGES T/O THE SHIFT,PT IS INDEP,PT IS IN CHAIR,CALL LIGHT WITHIN REACH,WILL CONTINUE TO MONITOR.
--- NOTE | 2021-05-04 05:25 | NUR ---
SHIFT SUMMARY A/O, ABLE TO MAKE NEEDS KNOWN. COOPERATIVE WITH CARE. CALLS AND ANSWERS QUESTIONS APPROPRIATELY. NO C/O PAIN/DISCOMFORT. NO STATED SOB. THORA-VENT REMAINS IN PLACE. REPEAT CXR TODAY. 5L VIA NC; RESPIRATIONS EVEN WITH EQUAL RISE/FALL. NO ACUTE CHANGES NOTED OVERNIGHT. BED REMAINS IN LOWEST POSITION. CALL LIGHT AND BELONGINGS WITHIN REACH. CONTINUE WITH CURRENT PLAN OF CARE. REPORT TO ONCOMING RN.
--- NOTE | 2021-05-04 14:58 | NUR ---
PATIENT A&OX4 UP AD DESTINEY WITH STANDBY ASSIST/SUPERVISION ABLE TO VERBALIZE NEEDS REMAINS IN STABLE CONDTION DENIES PAIN UP IN CHAIR CHEST TUBE REMAINS INTACT TO RT CHEST WITH H2O SEAL DENIES SOB RESP EVEN UNLABORED REMAINS WITH DRY NON-PRODUCTIVE COUGH ADEQUATE PO INTAKE VOIDING CLEAR YELLOW URINE NO COMPLICATIONS NOTED WILL CONTINUE TO MONITOR
[2021-05-05 12:48] LABS: Anion Gap 6 mmol/L (6-16); Blood Urea Nitrogen 7 mg/dL (8-24); Bun/Creatinine Ratio 9.5 (12.0-20.0); CO2, Blood 31 mmol/L (21-32); Chloride, Blood 105 mmol/L (98-108); Creatinine, Blood 0.74 mg/dL (0.60-1.20); Glomerular Filtration Rate >60 (60-); Glucose, Blood 94 mg/dL (70-99); Potassium, Blood 4.2 mmol/L (3.5-5.5); Sodium, Blood 142 mmol/L (136-145)
--- NOTE | 2021-05-05 17:30 | NUR ---
Shift Summary, The patient is A/OX4 to person,place, time and event. He is a stand by assist to the chiar and BSC. He has a chest tube that is water sealed. The patient denies any SOB or chest pain. He is on 3LPM NC and a goal has been set to titrate him down on o2. The patient stated he has a sore on his glutial area and he said he got it when he was first admitted. He has been changing positions and stated it has reduced pain. The patient has been using the insentive spirometer. Currently the patient is in the room eating dinner.
--- NOTE | 2021-05-06 04:12 | NUR ---
SHIFT SUMMARY PT HAS RESTED MOST OF THE NIGHT. HE HAS DENIED PAIN, OR SOB. OCCASIONAL NONPRODUCTIVE COUGH. LUNGS DIMINISHED T/O. PT ON 2L O2 AND HAS 5L O2 ALSO SET UP TO ALTERNATE IF NEEDED. PT HAS DONE WELL ON 2L. SATS BETWEEN 90-92%. PT WATCHES HIS SATS ON MONITOR. CHEST TUBE IN PLACE, PLAN FOR REPEAT CHEST X-RAY TODAY. VITALS STABLE. NO ACUTE CHANGES OVERNIGHT. BED IN LOWEST POSITION, CALL LIGHT WITHIN REACH.
--- NOTE | 2021-05-06 07:07 | NUR ---
CHEST TUBE PT WOKE UP THIS AM WHEN IMAGING CAME INTO THE ROOM. TAPE ON CHEST TUBE HAD SOMEHOW COME LOOSE WHEN PT WOKE UP IN BED. PRIOR TO THIS CHEST TUBE WAS SECURELY IN PLACE T/O THE SHIFT. I REINFORCED THE DRESSING WITH EXTRA TAPE, AND CHEST TUBE WAS STILL IN PLACE BEFORE PAITENT LEFT TO IMAGING. WHEN PT ARRIVED BACK FROM X-RAY AROUND 0700 THE TAPE HAD COME OFF AGAIN, TUBE IS IN PLACE BUT IS LOOSE. THERE IS NO BUBBLING IN CANNISTER, AND THERE APPEARS TO STILL BE A GOOD SEAL PRESENT. DAYSHIFT RN NOTIFIED OF THIS DURING REPORT AND DAYSHIFT ATTENDING HAS BEEN CALLED AND NOTIFIED. TO COME ASSESS TUBE SHORTLY. RESPIRATIONS REMAIN E/U. SATS WNL IN THE 90'S ON 4L.
--- NOTE | 2021-05-06 14:08 | NUR ---
THIS AM UPON RECEIPT OF PATIENT PER BEDSIDE REPORT PATIENT NOTED WITH CHEST TUBE TO RT CHEST APPEARING TO DETACH PREVIOUS SHIFT NICKES HAD ATTEMPTED TO REINFORCE WITH TAPE PATIENT NOTED STABLE WITH NO SOB ON 02 @2 L NC WITH SATS <92% THIS NURSE NOTIFIED DR NU JUDGE ASSESSED SEEN PATIENT AT BEDSIDE ASSURED PATIENT THAT PULMONOLGIST WILL F/U REGARDING REPLACEMENT/REMOVAL OF CHEST TUBE INDICATED AT THIS TIME PATIENT NOTED WITH INCREASED ANXIOUSNESS REGARDING CHEST TUBE REMAINS ON 02 @2L SATS 95-95% NO SOB NOTED LS REMAINS CLEAR IN LEFT LUNG VELAZQUEZ AND RUL DIMINISHED IN RML AND RLL PATIENT SITTING UP IN CHAIR WITH NO DISTRESS NOTED ATTEMPTS TO REASSURE CALM PATIENT PROVIDED PATIENT INSISTED SUPERVISOR ELECTRIC TO BE PLACED TO DR JUDGE THIS NURSE UPDATED DR JUDGE ON PATIENT CURRENT STATUS NO NEW ORDERS GIVEN PATIENT MADE AWARE WILL CONT TO MONITOR MONITOR
--- NOTE | 2021-05-06 16:24 | NUR ---
PATIENT SEEN BY MUSIC THERAPY SPECIALIST DR LARA AT BEDSIDE CHEST TUBE TO RT CHEST REMOVED PER MD DRY DSG INTACT AT THIS TIME NO ACITVE BLEEDING NO COMPLICATIONS NOTED PATIENT SITTING UP IN CHAIR NO SOB NOTED O2 SAT 92-94% DENIES PAIN OR DISCOMFORT A&OX4 ABLE TO VERBALIZE NEEDS WILL CONT TO MONITOR
--- NOTE | 2021-05-06 22:30 | NUR ---
PATIENT ARRIVED TO THE FLOOR AT 2030. ALERT AND ORIENTED X4. VITAL SIGNS WERE STABLE. PATIENT HAD CHEST TUBE TO SUCTION PLACED AT BEDSIDE WITH INITIAL DRAINAGE 250 ML. PATIENT TOLERATED THE PROCEDURE WELL WITH NO SIGN OF PAIN OR DISCOMFORT. PATIENT WAS GIVEN LIDACAINE AND FENTANYL DURING PROCEDURE. WILL CONTINUE TO MONITOR PATIENT FOR COMFORT AND SAFETY.
--- NOTE | 2021-05-07 03:30 | NUR ---
PATIENT C/O PAIN 5/10 AT THE CHEST TUBE INSERTION SIDE ON THE RIGHT UPPER CHESTWALL. MD WAS NOTIFIED AND TRAMADOL 50 MG PO Q6H PRN WAS ORDERED AND GIVEN. WILL CONTINUE TO MONITOR THE PATIENT'S PAIN AND SAFETY.
--- NOTE | 2021-05-07 19:37 | NUR ---
SHIFT SUMMARY PT ADMITTED FOR PNEUMOTHORAX FOLLOWING COVID-19 PNEUMONIA. A&O X4 AND PLEASANT. CHEST TUBE IN PLACE AND ATTACHED TO WALL SUCTION AND FUNCTIONING. 125 ML OF SEROSANGINOUS DRAINAGE COLLECTED DURING SHIFT. PULSE OX IN PLACE AND FUNCTIONING. O2 SATS MAINTAINING IN LOW 90'S. CURRENTLY ON 2 L NC. PT DENIED PAIN THROUGHOUT SHIFT. TOLERATED FOOD AND FLUIDS WELL W/O REPORT OF N/V. PT SPENT MOST OF THE DAY IN HIS CHAIR. PT USES URINAL AND CALL LIGHT APPROPRIATELY. CALL LIGHT IS WITHIN REACH.
--- NOTE | 2021-05-08 06:24 | NUR ---
PATIENT WAS MEDICATED X 1. PATIENT HAD AN UNEVENTFUL NIGHT. WILL CONTINUE TO MONITOR.
--- NOTE | 2021-05-08 17:03 | NUR ---
SHIFT SUMMARY PT ADMITTED FOR PNEUMOTHORAX. CHEST TUBE IN PLACE AND ATTACHED TO WALL SUCTION. OUT FOR ENTIRE SHIFT HAS ONLY BEEN 10 ML. PT HAS HAD NO REPORT OF SOB THROUGHOUT SHIFT. CONTINUOUS PULSE OX IN PLACE. PT O2 SATS HAVE MAINTAINED STEADY AT 90-95% ON 2.5 L O2 NC WITH HUMIDITY. PT DENIED PAIN THROUGHOUT THE DAY. PT SAT UP IN CHAIR ALL DAY. PT IS A&O X4 AND PLEASANT. PLAN IS TO DO ANOTHER CHEST XRAY TOMORROW AND AWAIT DOCTORS ORDERS FOR FURTHER PLAN. CALL LIGHT WITHIN REACH.
--- NOTE | 2021-05-09 06:53 | NUR ---
PATIENT HAD AN UNEVENTFUL NIGHT. PATIENT DENIED PAIN AND SLEPT DURING THE NIGHT. VITALS ARE STABLE AND THERE IS NO SIGN OF DISTRESS. WILL CONTINUE TO MONITOR.
--- NOTE | 2021-05-09 09:50 | NUR ---
DR SCHWAB IN TO SEE PT AT 0930 AND UNHOOKED CHEST TUBE. PLAN TO HAVE CHEST XRAY THIS AFTERNOON AND POSSIBLY REMOVE TUBE AND DC DEPENDING ON RESULTS.
--- NOTE | 2021-05-09 15:21 | NUR ---
PT BACK FROM CHEST XRAY
--- NOTE | 2021-05-09 16:10 | NUR ---
CHEST TUBE REMOVED BY DR SCHWAB. PT OKAY'D BY PHYSICIAN TO STAY THE NIGHT OR DC HOME TONIGHT. PT FEELS MORE COMFORTABLE STAYING TONIGHT. PER PHYSICIAN, MAY DO FOLLOW-UP CHEST X-RAY IN AM.
--- NOTE | 2021-05-09 16:52 | NUR ---
SHIFT SUMMARY PT IS A/O X4, IND IN ROOM. CHEST TUBE WAS CLAMPED/UNHOOKED THIS MORNING BY PHYSICIAN. FLUIDS WERE DRAWN FROM CHEST TUBE AND SENT TO LAB FOR CULTURE. PT HAD FOLLOW-UP CHEST XRAY THIS AFTERNOON AND CHEST TUBE WAS REMOVED AFTERWARD. PLAN IS TO STAY TONIGHT AND HAVE FOLLOW-UP CHEST XRAY IN AM THEN DC HOME. PT HAS BEEN USING 2L 02 NC PRN; BIOX IN PLACE.
[2021-05-09 17:27] LABS: Automated BF RBC Count 0.055 M/mm3 (0-0); Automated BF WBC Count 3.841 K/mm3 (0-999); Body Fluid WBC Count 3841 /mm3 (0-999); RBC Count, Body Fluid 55000 /mm3 (0-0)
[2021-05-09 17:45] LABS: Glucose, Body Fluid 78 mg/dL; Lactate Dehydrogenase, Body Fl 981 U/L; Protein, Body Fluid 4.6 g/dL
[2021-05-09 19:22] LABS: Total Cell Count, Body Fluid 100
[2021-05-09 19:24] LABS: Appearance, Body Fluid Cloudy (Clear); Color, Body Fluid Red (None-Yellow)
--- NOTE | 2021-05-10 06:44 | NUR ---
PATIENT HAD AN UNEVENTFUL NIGHT, SLEFT WELL, AND DENIED ANY PAIN. AN XRAY WAS PERFORMED THIS AM. NO SIGN OF DISTRESS, AND WILL CONTINUE TO MONITOR.
[2021-05-10] MEDS ORDERED: BENZ100A PO (10:40)
[2021-05-10] MEDS ORDERED: GUAI600T33 PO (10:41)
[2021-05-10] MEDS ORDERED: HYDROCORTISONE-28 GM TOP (10:42)
--- NOTE | 2021-05-10 12:29 | NUR ---
DISCHARGE PT A/O X4, IND IN ROOM. DENIES WORSENING SOB; HAS SOME WITH EXERTION WHICH HAS BEEN BASELINE RECENTLY SINCE COVID IN MARCH. USING 2L O2 NC PRN WITH BIOX IN USE. DRESSING TO R CHEST IN PLACE WHERE CHEST TUBE WAS REMOVED YESTERDAY. DC INSTRUCTIONS REVIEWED WITH PT; REPORTS UNDERSTANDING AND NO QUESTIONS. SCRIPT CALLED TO [facility] PER PT REQUEST. PT ASSISTED TO VEHICLE VIA WHEELCHAIR WITH STAFF ASSIST. BROUGHT HOME O2 FOR THE RIDE HOME. PERSONAL BELONGINGS AND PAPERWORK SENT WITH PT. PT DC'D AT 1220.
== END 2021-05-10 12:20 | disposition home or self-care (01) | DRG 199 ==
LOC: ER 18:48 → MEDS 21:25 → SURS 05-06 20:07
PROVIDERS: Family Medicine; Internal Medicine; Internal Medicine Critical Care Medicine; ADMIT Internal Medicine
PROC: 0W9B30Z Drainage of Left Pleural Cavity with Drainage Device, Percutaneous Approach (ICD-10-PCS; 2021-04-28)
PROC: 0W9B30Z Drainage of Left Pleural Cavity with Drainage Device, Percutaneous Approach (ICD-10-PCS; principal; 2021-05-06)
DX: J93.0 Spontaneous tension pneumothorax (principal); J96.21 Acute and chronic respiratory failure with hypoxia; Z68.41 Body mass index [BMI] 40.0-44.9, adult; K21.9 Gastro-esophageal reflux disease without esophagitis; E66.01 Morbid (severe) obesity due to excess calories; Z88.2 Allergy status to sulfonamides; Z90.49 Acquired absence of other specified parts of digestive tract; R21 Rash and other nonspecific skin eruption; K59.00 Constipation, unspecified; B94.8 Sequelae of other specified infectious and parasitic diseases; Z20.822 Contact with and (suspected) exposure to COVID-19; Z79.899 Other long term (current) drug therapy
CPT/HCPCS: 32551; 36415; 71045; 71046; 71250; 80048; 80053; 82945; 83615; 84157; 85025; 89051; 93005; 93010; 94640; 94762; 96374; 96375; 99285-25; A9270; C1729; J1650; J1885; J2060; J3010; U0004